=== PATIENT | female | born 1990 | race Caucasian/White ===

== ENCOUNTER 2020-02-24 18:11 | Emergency (ER) | payer OTHER, SELFPAY | END 2020-02-24 19:13 | disposition left against medical advice (07) | LOC: HO.ED 19:13 | PROVIDERS: Emergency Provider Emergency Medicine | DX: R05 Cough (principal) | CPT/HCPCS: 99281 ==

== ENCOUNTER 2020-02-29 11:10 | Outpatient (REF) | payer OTHER, SELFPAY | END 2020-02-29 11:11 | disposition home or self-care (01) | LOC: HO.LAB 11:10 | PROVIDERS: Visit Provider Internal Medicine | DX: Z20.828 Contact with and (suspected) exposure to other viral communicable diseases (principal) | CPT/HCPCS: 87635 ==

== ENCOUNTER 2020-09-05 15:39 | Outpatient (REF) | payer OTHER, SELFPAY | END 2020-09-05 15:40 | disposition home or self-care (01) | LOC: HO.LAB 15:39 | PROVIDERS: Visit Provider Internal Medicine | DX: Z20.822 Contact with and (suspected) exposure to COVID-19 (principal) | CPT/HCPCS: C9803; U0003; U0005 ==

== ENCOUNTER 2021-01-02 05:17 | Emergency (ER) | payer OTHER, SELFPAY ==
--- NOTE | ~2021-01-02 | XR_ITS ---
EXAMINATION: XR SHOULDER, RIGHT CLINICAL INFORMATION: Pain, no trauma COMPARISON: None TECHNIQUE: Three views of the right shoulder. FINDINGS: Glenohumeral alignment is anatomic. No acute fracture is seen. The acromioclavicular joint is intact. XR/XR shoulder RT min 2V IMPRESSION: No acute findings.
[2021-01-02 05:23] VITALS: BP 113/69; PULSE 91; RESP 16; TEMP 37; O2SAT 98; BMI 45.1
--- NOTE | 2021-01-02 05:50 | ED_ITS ---
HPI - Extremity Problem General Chief complaint: Extremity Injury, Upper Stated complaint: R SHOULDER PAIN S/P LIFTING HEAVY BOX AT WORK T-1 Time Seen by Provider: 01/02/21 05:34 Source: patient Mode of arrival: EMS Limitations: no limitations History of Present Illness HPI Narrative: Patient comes to emergency room complaining of suprascapular pain in the right side. Patient denies any injury. Patient states that whenever she moves her right arm up and down it hurts. Patient states her shoulder does not hurt. It is mostly pain above the scapula. Patient tried ibuprofen and Tylenol with no relief. Related Data Previous Rx's Medication Instructions Recorded cyclobenzaprine 10 mg tablet 10 mg PO TID PRN #14 tab 01/02/21 Allergies Allergy/AdvReac Type Severity Reaction Status Date / Time codeine [CODEINE] Allergy Intermediate HIVES Unverified 01/27/20 16:14 Penicillins [PCN] Allergy Intermediate HIVES Unverified 01/27/20 16:14 tramadol [TRAMADOL] Allergy Intermediate HIVES Unverified 01/27/20 16:14 latex [LATEX] Allergy Mild RASH Unverified 01/27/20 16:14 adhesive tape Allergy Unknown RASH Unverified 01/27/20 16:14 lidocaine [LIDOCAINE] Allergy Unknown RASH Unverified 01/27/20 16:14 loratadine [From CLARITIN] Allergy Unknown LIPS GO Unverified 01/27/20 16:14 NUMB morphine [MORPHINE] AdvReac Unknown VOMITING Unverified 01/27/20 16:14 Review of Systems Review of Systems: Constitutional : No Weight loss, No Fever, No Chills, No Night Sweats, No Fatigue, No Malaise ENT/Mouth : No Hearing loss, No Ear Pain, No Nasal Congestion, No Sinus Pain, No Hoarseness, No sore throat, No Rhinorrhea, No Swallowing Difficulty Eyes: No Eye Pain, No Swelling, No Redness, No Foreign Body, No Discharge, No Vision Changes Cardiovascular : No Chest Pain, No SOB, No Dyspnea on Exertion, No Orthopnea, No Edema, No Palpitations Respiratory : No Cough, No Sputum, No Wheezing, No Smoke Exposure, No Dyspnea Gastrointestinal : No Nausea, No Vomiting, No Diarrhea, No Constipation, No abdominal Pain, No Hematochezia, No Melena Genitourinary : no irregular bleeding, No Dysuria, No Urinary Frequency, No Hematuria, No Urinary Incontinence, No Urgency, No Flank Pain, No Urinary Flow Changes, No Hesitancy Musculoskeletal : No joint pain, complaining of suprascapular pain with movement Skin : No Skin Lesions, No rash Neuro : No Weakness, No Numbness, No Paresthesias, No Loss of Consciousness, No Dizziness, No Headache Psych : No Anxiety/Panic, No Depression, No SI/HI/AH/VH, No Social Issues, Heme/Lymph: No Bruising, No Bleeding,No Lymphadenopathy Endocrine : No Polyuria, No Polydipsia, No Temperature Intolerance [facility] Past Medical History Medical History Asthma PTSD (post-traumatic stress disorder) T-cell lymphoma Social History Social History Advance Directives: No Advance Directives Information Provided: No Patient : No Physical Exam Vital Signs: Vital Signs: Last Vital Signs Temp 98.6 F 01/02/21 05:23 Pulse 91 01/02/21 05:23 Resp 16 01/02/21 05:23 BP 113/69 01/02/21 05:23 Pulse Ox 98 01/02/21 05:23 Body Mass Index 45.1 Const: Other: Appearance: Alert. Oriented X3. No acute distress. Eyes: Pupils equal, round and reactive to light. ENT: Pharynx normal. Neck: Normal inspection. Neck supple. No lymph nodes noted. No crepitus CVS: Normal heart rate and rhythm. Pulses normal. Normal S1 and S2 Respiratory: No respiratory distress. Breath sounds normal. No Wheezing. No rales Abdomen: Soft and nontender. No rigidity. No distention. good BS x4 Skin: Skin warm and dry. Normal skin color. Normal skin turgor. Extremities: No lower extremity edema. Patient is able to abduct and adduct the arm, patient is able to lift it all the way up and hold it. Patient has no pain moving her shoulder, all the pain is in the suprascapular area. Pain to palpation over the suprascapular area, no bony tenderness. Neuro: Oriented X 3. No motor deficit. No sensory deficit. Moving all extermities. No slurred speech. Course Course Course Narrative: I discussed with the patient that she has musculoskeletal pain. Patient has no shoulder deformity, erythema, no shoulder pain on palpation or with movement. Patient was given 1 dose of IM Toradol and a dose of cyclobenzaprine. Shoulder x-rays unremarkable MDM - Extremity (Nontraumatic) Imaging Data Shoulder x-ray: Radiologist's impression: FINDINGS: Glenohumeral alignment is anatomic. No acute fracture is seen. The acromioclavicular joint is intact.? XR/XR shoulder RT min 2V IMPRESSION: No acute findings. Discharge Plan Discharge Clinical Impression: Musculoskeletal pain Patient Disposition: Home, Self-Care Instructions: Musculoskeletal Pain (ED) Additional Instructions: Do not take ibuprofen for the next 24 hours, you may only use Tylenol as needed. Please follow-up with your primary care physician tomorrow. If you have any worsening or new symptoms, please return to the emergency room or call 911 Prescriptions: New cyclobenzaprine 10 mg tablet 10 mg PO TID PRN (Reason: muscle spasm) Qty: 14 RF: 0
[2021-01-02] MEDS: Ketorolac Tromethamine 15 MG/ML VIAL 30 MG IM (05:59)
[2021-01-02] MEDS: Cyclobenzaprine HCl 10 MG TABLET PO (06:03)
== END 2021-01-02 06:23 | disposition home or self-care (01) ==
PROVIDERS: Emergency Provider Emergency Medicine
DX: M79.18 Myalgia, other site (principal)
CPT/HCPCS: 73030; 96372; 99283; 99284; J1885

== ENCOUNTER 2021-03-13 20:20 | Emergency (ER) | payer OTHER, SELFPAY ==
--- NOTE | ~2021-03-13 | XR_ITS ---
EXAMINATION: XR hand wrist LT CLINICAL INFORMATION: Pain status post fall, injury COMPARISON: None. TECHNIQUE: 3 views of the left hand and wrist FINDINGS: No fracture. Normal alignment. Normal mineralization. No radiopaque foreign body. No soft tissue abnormality seen. XR/XR hand wrist LT IMPRESSION: No acute osseous abnormality.
--- NOTE | ~2021-03-13 | XR_ITS ---
EXAMINATION: XR ELBOW, LEFT CLINICAL INFORMATION: Pain after fall COMPARISON: None TECHNIQUE: AP, lateral, and oblique views of the left elbow. FINDINGS: No fracture or dislocation. No joint effusion. Normal mineralization and alignment. XR/XR elbow LT min 3V IMPRESSION: No acute osseous abnormality of the left elbow.
[2021-03-13 20:34] VITALS: BP 122/80; PULSE 106; RESP 16; TEMP 36.9; O2SAT 99; BMI 41.1
--- NOTE | 2021-03-13 22:10 | ED_ITS ---
HPI - Fall General Chief Complaint: Fall Stated Complaint: fall Source: patient Mode of arrival: ambulatory Limitations: no limitations History of Present Illness HPI Narrative: Patient presents to the ED for left elbow and left hand pain since falling last week. patient states while trying to break her fall she out stretched her left hand which caused pain in hand and elbow. patient denies hitting head, loss of consciousness or body hitting the ground. Patient states no headache, abdominal pain, chest pain, shortness of breath, rectal bleeding, vomiting blood, flank pain, bloody urine, nausea, vomiting, or neck pain since incident. MD complaint: fall Related Data Previous Rx's Medication Instructions Recorded cyclobenzaprine 10 mg tablet 10 mg PO TID PRN #14 tab 01/02/21 naproxen 500 mg tablet 500 mg PO BID PRN #20 tab 03/13/21 Allergies Allergy/AdvReac Type Severity Reaction Status Date / Time codeine [CODEINE] Allergy Intermediate HIVES Unverified 01/27/20 16:14 Penicillins [PCN] Allergy Intermediate HIVES Unverified 01/27/20 16:14 tramadol [TRAMADOL] Allergy Intermediate HIVES Unverified 01/27/20 16:14 latex [LATEX] Allergy Mild RASH Unverified 01/27/20 16:14 adhesive tape Allergy Unknown RASH Unverified 01/27/20 16:14 lidocaine [LIDOCAINE] Allergy Unknown RASH Unverified 01/27/20 16:14 loratadine [From CLARITIN] Allergy Unknown LIPS GO Unverified 01/27/20 16:14 NUMB morphine [MORPHINE] AdvReac Unknown VOMITING Unverified 01/27/20 16:14 Review of Systems Review of Systems: Yes all other systems are reviewed and are negative Constitutional: Constitutional: Reports as per HPI and Reports no additional constitutional complaints Eyes: Eyes: Reports as per HPI and Reports no additional eye complaints ENT: Reports system reviewed and no additional complaints, except as documented and Reports as per HPI Cardiovascular: Cardiovascular: Reports as per HPI and Reports no additional cardiovascular complaints Respiratory: Respiratory: Reports as per HPI and Reports no additional respiratory complaints Gastrointestinal: Gastrointestinal: Reports as per HPI and Reports no additional gastrointestinal complaints Genitourinary: Genitourinary: Reports no additional female genitourinary complaints and Reports as per HPI Musculoskeletal: Musculoskeletal: Reports no additional musculoskeletal complaints and Reports arthralgias (left hand/elbow) Integumentary/Breasts: Skin/Breast: Reports system reviewed and no additional complaints, except as docu and Reports as per HPI Neurologic: Reports system reviewed and no additional complaints, except as documented and Reports as per HPI Psychiatric: Psychiatric: Reports no additional psychiatric complaints and Reports as per HPI [facility] Past Medical History Medical History Asthma PTSD (post-traumatic stress disorder) T-cell lymphoma Social History Social History Advance Directives: No Advance Directives Information Provided: Yes Physical Exam Vital Signs: Vital Signs: Last Vital Signs Temp 98.5 F 03/13/21 20:34 Pulse 106 H 03/13/21 20:34 Resp 16 03/13/21 20:34 BP 122/80 03/13/21 20:34 Pulse Ox 99 03/13/21 20:34 Body Mass Index 41.1 Const: General: cooperative, healthy appearing, comfortable, no acute distress, well developed, alert, awake and Physically active Orientation/consciousness: patient oriented x3 HENMT: Head: Yes normal to inspection, Yes No palpable skull fracture present, Yes normocephalic, Yes atraumatic, No abrasion, No Acrocyanosis present, No Gardner's sign, No contusion, No cranial bruits, No hematoma, No laceration, No occipital foramen tenderness, No palpable skull fracture, No raccoon eyes, No scalp lesion, No scalp tenderness, No Temporal artery tenderness present and No periorbital ecchymosis Eyes: General: appearance normal, both eyes and all related structures Neck: Neck: Yes normal visual inspection, Yes full ROM, Yes no lymphadenopathy, Yes no meningeal signs, Yes trachea midline, Yes supple, No anterior neck swelling and No tender Chest: Chest palpation & inspection: normal inspection of the chest and normal palpation of entire chest wall Resp: Effort & Inspection: normal respiratory effort and able to speak in complete sentences Auscultation: clear to auscultation bilaterally Cardio: Jugular venous distension: no JVD Heart sounds: S1 normal heart sound present and S2 normal heart sound present GI: Inspection: Yes normal to inspection and No abdominal wall ecchymosis Palpation (GI): Soft to palpation, not firm, nontender, no guarding and not rigid : General: No CVA tenderness and Yes no CVA tenderness Back/Spine/Pelvis: Back: no CVA tenderness, No CVA tenderness and No back tenderness Skin: General skin exam: no rashes or lesions noted and elasticity normal Neuro: General: patient oriented x3, gait normal, no meningeal signs and CN's II-XI intact bilaterally Cranial nerves: Yes CN's II-XII intact bilaterally Extrem: General: Yes normal to inspection and Yes full ROM Shoulder/upper arm images: 1. Mild tenderness. Patient has complete range of motion of elbow. Negative for any erythema, ecchymosis, swelling, redness, st iffness, or decreased mobility. Brachial pulse intact. Motor/neuro/vascular exam intact. Hand/finger images: 1. Mild tenderness on palpation. Negative for erythema, swelling, crepitus, ecchymosis, deformity, hotness, coolness, red streaks or stiffness. Patient has complete range of motion of hand and all fingers. Capillary refills intact. Motor/neuro/vascular exam of extremity intact. Psych: Appearance: grossly normal, well kempt and not disheveled Course Course Course Narrative: Patient sent for x-ray. Reevaluation(s) Reevaluation #1: X-ray negative for any fractures. Not suspecting cellulitis, DVT, or compartment syndrome. Not suspecting septic joint pain. Patient given Charles wrap for comfort Time: 22:18 MDM - Fall MDM Narrative Medical decision making narrative: Elbow/wrist sprain. Discharge Plan Discharge Clinical Impression: Sprain of hand, Elbow sprain, Contusion Patient Disposition: Home, Self-Care Instructions: Sprain (ED), Elbow Sprain (ED) Additional Instructions: The x-ray came back negative for fractures. He can use Charles wrap for comfort. He will be discharged with pain medication. Recommend follow-up with primary care provider if pain does not improve to see if he needs MRI. Return to ED for worsening pain, swelling, redness, pus discharge, foul odor, bluish black discoloration, hotness, coldness, red streaks, tingling/numbness, chest pain, shortness of breath, fever, chills, or any other concerning symptoms. Prescriptions: New naproxen 500 mg tablet 500 mg PO BID PRN (Reason: pain) Qty: 20 RF: 0 No Action cyclobenzaprine 10 mg tablet 10 mg PO TID PRN (Reason: muscle spasm) Qty: 14 RF: 0 Stand Alone Forms: Work/School Release Interventions: ED Discharge Assessment Last Done: 03/13/21 22:51 Discharge Date/Time: 03/13/21 22:30 Print Language: Panamanian
== END 2021-03-13 22:30 | disposition home or self-care (01) ==
PROVIDERS: Emergency Provider Student in an Organized Health Care Education/Training Program
DX: S63.92XA Sprain of unspecified part of left wrist and hand, initial encounter (principal); S53.402A Unspecified sprain of left elbow, initial encounter; M79.602 Pain in left arm; W19.XXXA Unspecified fall, initial encounter; Y93.9 Activity, unspecified; Y92.9 Unspecified place or not applicable; Y99.9 Unspecified external cause status; Z79.899 Other long term (current) drug therapy
CPT/HCPCS: 73080; 73110; 73130; 99283

== ENCOUNTER 2021-04-18 12:01 | Outpatient (REF) | payer OTHER, SELFPAY ==
[2021-04-18 12:54] LABS: COVID-19 Test Negative (Negative)
== END 2021-04-18 12:02 | disposition home or self-care (01) ==
LOC: HO.LAB 12:01
PROVIDERS: Visit Provider Internal Medicine
DX: Z20.822 Contact with and (suspected) exposure to COVID-19 (principal)
CPT/HCPCS: 36415; 87635; C9803

== ENCOUNTER 2021-05-20 13:19 | Emergency (ER) | payer OTHER, SELFPAY ==
--- NOTE | ~2021-05-20 | XR_ITS ---
EXAMINATION: XR CHEST CLINICAL INFORMATION: Cough. COMPARISON: None TECHNIQUE: 2 views of the chest were obtained. FINDINGS: No significant abnormality is noted involving the heart, lungs, mediastinum, bony thorax or soft tissues. XR/XR chest 2V IMPRESSION: Unremarkable chest examination.
[2021-05-20 13:37] VITALS: BP 139/72; BP 150/80; PULSE 113; PULSE 117; RESP 20; TEMP 36.1; O2SAT 95; O2SAT 97; BMI 44.4
[2021-05-20] MEDS: Ondansetron ODT 4 MG TAB.RAPDIS TRANSLINGU ×2 (13:46→14:15)
[2021-05-20 14:01] LABS: COVID-19 Test Positive (Negative)
--- NOTE | 2021-05-20 14:15 | ED.URI ---
HPI - URI/Sore Throat General Chief Complaint: Upper Respiratory Symptoms Stated Complaint: headache/sob Time Seen by Provider: 05/20/21 13:57 Source: patient Mode of arrival: ambulatory Limitations: no limitations History of Present Illness HPI Narrative: 31-year-old female here with reports of 2 days of headache, cough, wheezing, nausea and vomiting, body aches and subjective fevers. Patient was exposed to her sister was COVID positive 5 days ago. The patient is not vaccinated for COVID. No shortness of breath, chest pain, leg swelling or pain Related Data Previous Rx's Medication Instructions Recorded cyclobenzaprine 10 mg tablet 10 mg PO TID PRN #14 tab 01/02/21 naproxen 500 mg tablet 500 mg PO BID PRN #20 tab 03/13/21 ibuprofen 600 mg tablet 600 mg PO Q8H PRN #20 tab 05/20/21 ondansetron 4 mg disintegrating 4 mg PO Q6H PRN #10 tab 05/20/21 tablet Allergies Allergy/AdvReac Type Severity Reaction Status Date / Time codeine [CODEINE] Allergy Intermediate HIVES Unverified 01/27/20 16:14 Penicillins [PCN] Allergy Intermediate HIVES Unverified 01/27/20 16:14 tramadol [TRAMADOL] Allergy Intermediate HIVES Unverified 01/27/20 16:14 latex [LATEX] Allergy Mild RASH Unverified 01/27/20 16:14 adhesive tape Allergy Unknown RASH Unverified 01/27/20 16:14 lidocaine [LIDOCAINE] Allergy Unknown RASH Unverified 01/27/20 16:14 loratadine [From CLARITIN] Allergy Unknown LIPS GO Unverified 01/27/20 16:14 NUMB morphine [MORPHINE] AdvReac Unknown VOMITING Unverified 01/27/20 16:14 Review of Systems Review of Systems: Yes all other systems are reviewed and are negative Constitutional: Constitutional: Reports no additional constitutional complaints, Reports body ache(s), Denies chills, Reports fever(s) (subjective ), Reports headache(s) and Denies weakness Eyes: Eyes: Reports no additional eye complaints and Denies change in vision ENT: Reports system reviewed and no additional complaints, except as documented, Denies dizziness, Reports headache(s), Denies nasal congestion, Denies nasal discharge and Denies neck pain Cardiovascular: Cardiovascular: Reports no additional cardiovascular complaints, Denies chest pain, Denies leg edema and Denies dyspnea Respiratory: Respiratory: Reports no additional respiratory complaints, Reports cough, Denies dyspnea and Reports wheezing Gastrointestinal: Gastrointestinal: Reports no additional gastrointestinal complaints, Denies abdominal pain, Denies diarrhea, Reports nausea and Reports vomiting Genitourinary: Genitourinary: Reports no additional female genitourinary complaints and Denies urinary incontinence Musculoskeletal: Musculoskeletal: Reports no additional musculoskeletal complaints, Denies back pain, Denies arthralgias, Denies joint swelling, Denies neck pain, Denies numbness and Denies tingling Integumentary/Breasts: Skin/Breast: Reports system reviewed and no additional complaints, except as docu and Denies rash Neurologic: Reports system reviewed and no additional complaints, except as documented, Denies Abnormal speech present, Denies dizziness, Reports headache(s), Denies numbness, Denies tingling and Denies weakness Allergic/Immunologic: Allergic/Immunologic: Reports wheezing PMFSH Past Medical History Attestation statement: The following information was validated with the patient. Source: old records reviewed and nursing notes reviewed Medical History Asthma PTSD (post-traumatic stress disorder) T-cell lymphoma Social History Social History Advance Directives: No Advance Directives Information Provided: Yes Physical Exam Vital Signs: Vital Signs: Last Vital Signs Temp 97.0 F 05/20/21 13:37 Pulse 99 05/20/21 15:03 Resp 19 05/20/21 15:03 BP 139/72 05/20/21 13:37 Pulse Ox 96 05/20/21 15:03 BMI result Body Mass Index 44.4 Const: General: cooperative, healthy appearing, comfortable and no acute distress Orientation/consciousness: patient oriented x3 Limitations: no limitations HENMT: Head: Yes normal to inspection Ears: hearing grossly normal bilaterally General nose exam: Normal external nose present Face and sinus: Yes normal facial exam Mouth: Normal oral and palatal mucosa present Throat: Yes posterior oropharynx normal Eyes: General: appearance normal, both eyes and all related structures Pupils: Equal, round and reactive pupils present Neck: Neck: Yes normal visual inspection Chest: Chest palpation & inspection: normal inspection of the chest Resp: Other: Mild expiratory wheezing Effort & Inspection: normal respiratory effort Cardio: Rate: regular rate Rhythm: regular rhythm Peripheral pulses: Peripheral pulses 2+ throughout GI: Inspection: Yes normal to inspection Palpation (GI): Soft to palpation and nontender Auscultation: normal bowel sounds Back/Spine/Pelvis: Thoracic/Lumbar Spine: thoracic and lumbar spine normal to inspection Skin: General skin exam: no rashes or lesions noted Neuro: General: patient oriented x3, no focal motor deficits and normal sensation to monofilament Cranial nerves: Yes Equal, round and reactive pupils present Cognition (Neuro): normal cognition Speech: No Abnormal speech present Gait exam (Neuro): Normal gait present Motor exam (neuro): 5/5 motor strength present throughout Extrem: General: Yes normal to inspection Course Course Course Narrative: 31-year-old female here with 2 days of cough, nausea, vomiting, subjective fevers, headache, body aches, wheezing. Not vaccinated for COVID. Vitals are stable. Patient did vomit in triage. No abdominal pain or diarrhea. Will give sublingual Zofran, albuterol MDI. 1445-patient tolerating p.o.. No additional vomiting episodes. Mild tachycardia which is likely secondary to mild dehydration. Patient can orally rehydrate home. Her rapid COVID test is positive. Her chest x-ray shows no acute finding. Will discharge home with albuterol MDI, Zofran p.r.n. and NSAID for pain. Reviewed worrisome signs and symptoms of when to return to the emergency department. Comfortable discharge home. MDM - URI/Sore Throat Medical Records Attestation: I reviewed the patient's medical records. Lab Data Attestation: I reviewed the patient's lab results. Labs: Lab Results 05/20/21 Range/Units 13:45 COVID-19 ([facility]) Positive A (Negative) COVID-19 Clin Com See Note Imaging Data Chest x-ray: Attestation: I personally reviewed and interpreted this imaging study as follows: Radiologist's impression: [address] [address] XRay Report Signed Patient: Bianca Sebastian MR#: [id number] : 1990 Acct:[id number] Age/Sex: 31 / F ADM Date: 05/20/21 Loc: HO.ED Attending Dr: Ordering Physician: Jay Ball MD Date of Service: 05/20/21 Procedure(s): XR chest 2V Accession Number(s): [id number] cc: Jay Ball MD~ EXAMINATION: XR CHEST CLINICAL INFORMATION: Cough. COMPARISON: None TECHNIQUE: 2 views of the chest were obtained. FINDINGS: No significant abnormality is noted involving the heart, lungs, mediastinum, bony thorax or soft tissues. XR/XR chest 2V IMPRESSION: Unremarkable chest examination. Discharge Plan Discharge Clinical Impression: COVID-19 Patient Disposition: Home, Self-Care Instructions: COVID-19 (Coronavirus Disease 2019) (ED) Additional Instructions: COVID test is positive Quarantine for an additional 8 days Motrin or Tylenol for pain or fever Increase fluids, rest Zofran for nausea and vomiting Use inhaler as needed Prescriptions: New ondansetron 4 mg tablet,disintegrating 4 mg PO Q6H PRN (Reason: nausea and vomiting) Qty: 10 RF: 0 ibuprofen 600 mg tablet 600 mg PO Q8H PRN (Reason: fever or pain) Qty: 20 RF: 0 No Action cyclobenzaprine 10 mg tablet 10 mg PO TID PRN (Reason: muscle spasm) Qty: 14 RF: 0 naproxen 500 mg tablet 500 mg PO BID PRN (Reason: pain) Qty: 20 RF: 0 Referrals: Physician,Unknown J [Primary Care Provider] - 2 days Stand Alone Forms: Work/School Release Interventions: ED Discharge Assessment Last Done: 05/20/21 15:03 Discharge Date/Time: 05/20/21 15:04
[2021-05-20] MEDS: Albuterol Sulfate 90 MCG 8 GM INHALER 2 PUFF INHALE (15:00)
[2021-05-20 15:03] VITALS: PULSE 99; RESP 19; O2SAT 96
== END 2021-05-20 15:04 | disposition home or self-care (01) ==
PROVIDERS: Emergency Provider Internal Medicine
DX: U07.1 COVID-19 (principal)
CPT/HCPCS: 71046; 87635; 99284

== ENCOUNTER 2021-08-27 21:58 | Emergency (ER) | payer OTHER, SELFPAY ==
[2021-08-27 22:45] VITALS: BP 125/74; PULSE 104; RESP 20; TEMP 36.9; O2SAT 99; BMI 45.5
[2021-08-27 23:08] LABS: MANUAL DIFF FLAG NO
[2021-08-27 23:10] LABS: Appearance Urine CLEAR; Basophils Percent Auto 0.3 % (0-2); Color Urine STRAW; Eosinophils Absolute Auto 0.1 X10*3/uL (0.0-0.4); Eosinophils Percent Auto 0.7 % (0-4); Glucose Urine UA NEG (NEG); Hematocrit 36.9 % (37.0-47.0); Hemoglobin 11.6 g/dl (12.0-16.0); Imm Gran Abs Auto 0.04 X10*3/uL (0.00-0.03); Imm Gran Pct Auto 0.3 % (0.0-0.4); Leukocyte Esterase Urine NEG (NEG); Lymphocytes Absolute Auto 2.7 X10*3/uL (1.2-4.9); Lymphocytes Percent Auto 20.9 % (20-40); Mean Corpuscular HGB Conc 31.4 g/dl (31.0-35.0); Mean Corpuscular Hemoglobin 25.6 pg (27.0-33.0); Mean Corpuscular Volume 81.3 fL (80.0-98.0); Mean Platelet Volume 11.2 fL (9.4-12.3); Monocytes Absolute Auto 0.6 X10*3/uL (0.1-1.2); Neutrophils Absolute Auto 9.2 x10*3/uL (2.0-8.3); Neutrophils Percent Auto 72.8 % (45-73); Nitrite Urine NEG (NEG); Platelet Count 337 X10*3/uL (160-400); Red Blood Count 4.54 X10*6/uL (4.20-5.50); Red Cell Distribution Width 14.8 % (11.0-16.0); UACC Culture Trigger NO; Urine Blood TRACE (NEG); Urine Ketones NEG (NEG); Urine Protein NEG (NEG-TRACE); White Blood Count 12.7 X10*3/uL (4.8-10.8)
[2021-08-27 23:12] LABS: UPreg QC Valid YES; Urine Pregnancy NEGATIVE (NEGATIVE)
[2021-08-27 23:24] LABS: Squamous Epithelial Cell Urine TRACE /LPF; WBC Urine 0-2 /HPF (0-4)
--- NOTE | 2021-08-27 23:24 | ED.FEMALEGU ---
HPI - Female Genitourinary General Chief complaint: Urogenital-Female Stated complaint: lower L back pain; kidney stones Time Seen by Provider: 08/27/21 23:12 Source: patient Mode of arrival: ambulatory Limitations: no limitations History of Present Illness HPI Narrative: 31-year-old female past medical history significant for T-cell lymphoma, asthma, depression presents to the emergency department with complaints of right lower back pain/flank pain and concerns for an STD. Patient tells me that she is having right flank pain that radiates to her right side this is been going on for about a week worsening. She tells me that the pain is a squeezing/uncomfortable sensation. She tells me that she has had kidney stones in the past and it does not feel like her typical kidney stone. She tells me that the last time she felt this way she had an STD. She is concerned for STDs at this time and would like prophylactic treatment. At this time she denies fevers, chills, chest pain, shortness breath, nausea, vomiting, abdominal pain, dysparunia, vaginal discharge/bleeding. Patient does have a history of gonorrhea and chlamydia both of which were treated. MD elicited complaint: back pain and flank pain Pertinent past history: STI/STD Onset (ago): week(s) (1) Severity: moderate Severity scale (1-10): 5 Quality of pain: aching Consistency: constant Vaginal discharge: none Vaginal bleeding: none Exacerbating factors: none Relieving factors: none Associated symptoms: denies other symptoms Treatment prior to arrival: none Sexual activity: Yes Patient : No Related Data Previous Rx's Medication Instructions Recorded cyclobenzaprine 10 mg tablet 10 mg PO TID PRN #14 tab 01/02/21 naproxen 500 mg tablet 500 mg PO BID PRN #20 tab 03/13/21 ibuprofen 600 mg tablet 600 mg PO Q8H PRN #20 tab 05/20/21 ondansetron 4 mg disintegrating 4 mg PO Q6H PRN #10 tab 05/20/21 tablet doxycycline hyclate 100 mg capsule 100 mg PO BID 7 Days #14 cap 08/27/21 metronidazole 500 mg tablet 500 mg PO BID 7 Days #14 tab 08/27/21 cyclobenzaprine 10 mg tablet 10 mg PO BEDTIME PRN #7 tab 08/28/21 naproxen 500 mg tablet 500 mg PO BID #14 tab 08/28/21 Allergies Allergy/AdvReac Type Severity Reaction Status Date / Time codeine [CODEINE] Allergy Intermediate HIVES Verified 08/27/21 22:45 Penicillins [PCN] Allergy Intermediate HIVES Verified 08/27/21 22:45 tramadol [TRAMADOL] Allergy Intermediate HIVES Verified 08/27/21 22:45 latex [LATEX] Allergy Mild RASH Verified 08/27/21 22:45 adhesive tape Allergy Unknown RASH Verified 08/27/21 22:45 lidocaine [LIDOCAINE] Allergy Unknown RASH Verified 08/27/21 22:45 loratadine [From CLARITIN] Allergy Unknown LIPS GO Verified 08/27/21 22:45 NUMB morphine [MORPHINE] AdvReac Unknown VOMITING Verified 08/27/21 22:45 Review of Systems Review of Systems: Constitutional : No Weight loss, No Fever, No Chills, No Fatigue, No Malaise ENT/Mouth : No sore throat, No Rhinorrhea Eyes: No Eye Pain, No Swelling, No Redness Cardiovascular : No Chest Pain, No SOB, No Dyspnea on Exertion, No Orthopnea, No Edema, No Palpitations Respiratory : No Cough, No Sputum, No Wheezing Gastrointestinal : No Nausea, No Vomiting, No Diarrhea, No Constipation, No abdominal Pain, No Hematochezia, No Melena Genitourinary : No Dysuria, No Urinary Frequency, No Hematuria, Musculoskeletal : + joint pain, No Myalgias, No Joint Swelling Skin : No Skin Lesions, No rash Neuro : No Weakness, No Numbness, No Dizziness, No Headache Psych : No Anxiety/Panic, No Depression All other systems reviewed and are negative [facility] Past Medical History Attestation statement: The following information was validated with the patient. Source: old records reviewed and nursing notes reviewed Medical History Asthma PTSD (post-traumatic stress disorder) T-cell lymphoma Social History Social History Advance Directives: No Patient : No Physical Exam Vital Signs: Vital Signs: Last Vital Signs Temp 98.4 F 08/27/21 22:45 Pulse 104 H 08/27/21 22:45 Resp 20 08/27/21 22:45 BP 125/74 08/27/21 22:45 Pulse Ox 99 08/27/21 22:45 BMI result Body Mass Index 45.5 VSS Appearance: Alert.? Oriented X3.? No acute distress.? Head: Normocephalic, atraumatic, no step-offs or deformities Eyes: Pupils equal, round and reactive to light.? ENT: Pharynx normal.? Neck: Normal inspection.? Neck supple.? CVS: Normal heart rate and rhythm.? Pulses normal.? Respiratory: No respiratory distress.? Breath sounds normal.? Abdomen: Soft and nontender.? Skin: Skin warm and dry.? Normal skin color.? Normal skin turgor.? Extremities: No lower extremity edema.? No calf ttp. 5/5 strength to bilateral upper and lower extremities Back: No midline tenderness, no C-spine tenderness, full range of motion, + CVA tenderness on right Neuro: Oriented X 3.? No motor deficit.? No sensory deficit. CN 2-12 intact Course Reevaluation(s) Reevaluation #1: Patient agrees to prophylactic treatment for gonorrhea, chlamydia and trichomonas. 500mg IM ceftriaxone has been given here and scripts for doxycycline 100 mg po BID X 7 days and metronidazole 500 mg po BID X 7 days have been given to the patient. Educated on safe sex practices, full pannel STD testing and speaking to? partners on possible STD.? CBC with a slightly elevated white blood cell count. No acute electrolyte abnormalities requiring intervention. Urine clean. Patient does not want to wait for the CT of the abdomen and pelvis. I advised her that because of CVA tenderness on exam I am unable to rule out pyelonephritis. Time: 00:58 MDM - Female Genitourinary [facility] Narrative Medical decision making narrative: 2324 31 yo f presents w/ atraumatic right lower back pain and concerns for STD. Physical exam significant for CVA tenderness on the right. Stable vitals. Regular rate and rhythm. Lungs clear abdomen soft nontender nondistended. At this time will rule out UTI, pyelonephritis, kidney stones. Plan at this time is to prophylactically treat. Patient will get a CT of the abdomen and pelvis to rule out kidney stone/pyelonephritis. Medical Records Attestation: I reviewed the patient's medical records. Lab Data Attestation: I reviewed the patient's lab results. Result diagrams: 08/27/21 23:00 08/27/21 23:00 Labs: Lab Results 08/27/21 08/27/21 08/27/21 Range/Units 23:00 23:00 23:00 WBC 12.7 H (4.8-10.8) X10*3/uL RBC 4.54 (4.20-5.50) X10*6/uL Hgb 11.6 L (12.0-16.0) g/dl Hct 36.9 L (37.0-47.0) % MCV 81.3 (80.0-98.0) fL MCH 25.6 L (27.0-33.0) pg MCHC 31.4 (31.0-35.0) g/dl RDW 14.8 (11.0-16.0) % Plt Count 337 (160-400) X10*3/uL MPV 11.2 (9.4-12.3) fL Immature Gran % (Auto) 0.3 (0.0-0.4) % Neut % (Auto) 72.8 (45-73) % Lymph % (Auto) 20.9 (20-40) % Harrison % (Auto) 5.0 (2-11) % Eos % (Auto) 0.7 (0-4) % Baso % (Auto) 0.3 (0-2) % Lymph # (Auto) 2.7 (1.2-4.9) X10*3/uL Harrison # (Auto) 0.6 (0.1-1.2) X10*3/uL Eos # (Auto) 0.1 (0.0-0.4) X10*3/uL Baso # (Auto) 0.0 (0.0-0.2) X10*3/uL Abs Immat Gran (auto) 0.04 H (0.00-0.03) X10*3/uL Absolute Neuts (auto) 9.2 H (2.0-8.3) x10*3/uL Absolute Nucleated RBC 0.000 (0.0-0.012) X10*3/uL Nucleated RBC % (auto) 0.0 (0.0-0.2) /100WBC Sodium 139 (135-145) mmol/L Potassium 3.7 (3.3-5.1) mmol/L Chloride 106 (96-108) mmol/L Carbon Dioxide 23 (22-29) mmol/L Anion Gap 14 (12-20) BUN 8 L (9-16) mg/dL Creatinine 0.71 (0.5-1.4) mg/dL Estim Creat Clear Calc 149.3 Estimated GFR > 60 Random Glucose 117 H (60-115) mg/dL Calcium 9.1 (8.4-10.2) mg/dL Total Bilirubin 0.2 (0.0-1.0) mg/dL AST 18 (5-31) U/L ALT 17 (0-31) U/L Alkaline Phosphatase 84 (39-117) U/L Total Protein 7.2 (6.5-8.0) g/dL Albumin 3.9 (3.5-5.0) g/dL Lipase 28 (8-78) U/L Urine Color STRAW Urine Appearance CLEAR Urine pH 6.0 (5.0-8.0) Ur Specific [place] 1.020 (1.005-1.025) Urine Protein NEG (NEG-TRACE) MG/DL Urine Glucose (UA) NEG (NEG) MG/DL Urine Ketones NEG (NEG) MG/DL Urine Blood TRACE (NEG) Urine Nitrite NEG (NEG) Ur Leukocyte Esterase NEG (NEG) Urine RBC 1-4 (0) /HPF Urine WBC 0-2 (0-4) /HPF Ur Squamous Epith Cells TRACE /LPF Urine Bacteria NONE /LPF Urine Test (NEGATIVE) 08/27/21 Range/Units 23:00 WBC (4.8-10.8) X10*3/uL RBC (4.20-5.50) X10*6/uL Hgb (12.0-16.0) g/dl Hct (37.0-47.0) % MCV (80.0-98.0) fL MCH (27.0-33.0) pg MCHC (31.0-35.0) g/dl RDW (11.0-16.0) % Plt Count (160-400) X10*3/uL MPV (9.4-12.3) fL Immature Gran % (Auto) (0.0-0.4) % Neut % (Auto) (45-73) % Lymph % (Auto) (20-40) % Harrison % (Auto) (2-11) % Eos % (Auto) (0-4) % Baso % (Auto) (0-2) % Lymph # (Auto) (1.2-4.9) X10*3/uL Harrison # (Auto) (0.1-1.2) X10*3/uL Eos # (Auto) (0.0-0.4) X10*3/uL Baso # (Auto) (0.0-0.2) X10*3/uL Abs Immat Gran (auto) (0.00-0.03) X10*3/uL Absolute Neuts (auto) (2.0-8.3) x10*3/uL Absolute Nucleated RBC (0.0-0.012) X10*3/uL Nucleated RBC % (auto) (0.0-0.2) /100WBC Sodium (135-145) mmol/L Potassium (3.3-5.1) mmol/L Chloride (96-108) mmol/L Carbon Dioxide (22-29) mmol/L Anion Gap (12-20) BUN (9-16) mg/dL Creatinine (0.5-1.4) mg/dL Estim Creat Clear Calc Estimated GFR Random Glucose (60-115) mg/dL Calcium (8.4-10.2) mg/dL Total Bilirubin (0.0-1.0) mg/dL AST (5-31) U/L ALT (0-31) U/L Alkaline Phosphatase (39-117) U/L Total Protein (6.5-8.0) g/dL Albumin (3.5-5.0) g/dL Lipase (8-78) U/L Urine Color Urine Appearance Urine pH (5.0-8.0) Ur Specific [place] (1.005-1.025) Urine Protein (NEG-TRACE) MG/DL Urine Glucose (UA) (NEG) MG/DL Urine Ketones (NEG) MG/DL Urine Blood (NEG) Urine Nitrite (NEG) Ur Leukocyte Esterase (NEG) Urine RBC (0) /HPF Urine WBC (0-4) /HPF Ur Squamous Epith Cells /LPF Urine Bacteria /LPF Urine Test NEGATIVE (NEGATIVE) Critical Care Time Critical Care Time Critical Care Time: No Discharge Plan Discharge Clinical Impression: Lower back pain, Concern about STD in female without diagnosis, Left against medical advice Patient Disposition: Left Against Medical Advice Instructions: Acute Low Back Pain (ED) Additional Instructions: Take your medications as prescribed. If you were prescribed antibiotics today, it is important that you take your medication to their entirety, do not skip any doses, do not finish them early. Follow-up with your primary care provider this week. Return to the emergency department with new or worsening symptoms. Such as fevers, chills, chest pain, shortness of breath, nausea, vomiting, dizziness, headache, vision changes, lethargy In case of emergency call 911 You were treated here today with ceftriaxone, a medication that treats gonorrhea. I have sent to your pharmacy Metronidazole that covers trichomonas, and Doxycycline which covers for chlamydia. Please be reevaluated by a healthcare provider after completing your antibiotics. Do not stop them early, do not skip any doses. Until you are reevaluated by a health care provider please practice safe sex as disucussed. Please also have a conversation with your sexual partners.? I also advise you to obtain full panel STD testing to test for other STDs including HIV, Hepatitis B & C and syphilis with your PCP or a local clinic.? You decided to leave against medical advice meaning that your condition can go undiagnosed or progress. Potential risks include worsening of symptoms, decreased quality of life, , infection, sepsis, heart attack or stroke. Prescriptions: New doxycycline hyclate 100 mg capsule 100 mg PO BID 7 Days Qty: 14 0RF metronidazole 500 mg tablet 500 mg PO BID 7 Days Qty: 14 0RF cyclobenzaprine 10 mg tablet 10 mg PO BEDTIME PRN (Reason: muscle spasm) Qty: 7 0RF naproxen 500 mg tablet 500 mg PO BID Qty: 14 0RF No Action cyclobenzaprine 10 mg tablet 10 mg PO TID PRN (Reason: muscle spasm) Qty: 14 0RF ondansetron 4 mg tablet,disintegrating 4 mg PO Q6H PRN (Reason: nausea and vomiting) Qty: 10 0RF ibuprofen 600 mg tablet 600 mg PO Q8H PRN (Reason: fever or pain) Qty: 20 0RF naproxen 500 mg tablet 500 mg PO BID PRN (Reason: pain) Qty: 20 0RF Referrals: Physician,Unknown J [Primary Care Provider] - 3 days Stand Alone Forms: Against Medical Advice
[2021-08-27 23:29] LABS: Alanine Aminotransferase 17 U/L (0-31); Albumin Level 3.9 g/dL (3.5-5.0); Alkaline Phosphatase 84 U/L (39-117); Anion Gap 14 (12-20); Aspartate Amino Transferase 18 U/L (5-31); Bilirubin Total 0.2 mg/dL (0.0-1.0); Blood Urea Nitrogen 8 mg/dL (9-16); Calcium 9.1 mg/dL (8.4-10.2); Carbon Dioxide 23 mmol/L (22-29); Chloride 106 mmol/L (96-108); Creatinine Clr Calc Pharmacy 149.3; Estimated Glomerular Filt Rate > 60; Glucose Random 117 mg/dL (60-115); Lipase 28 U/L (8-78); Potassium 3.7 mmol/L (3.3-5.1); Sodium 139 mmol/L (135-145); Total Protein 7.2 g/dL (6.5-8.0)
[2021-08-28] MEDS: cefTRIAXone sodium 500 MG VIAL IM (00:25)
[2021-08-28 02:07] LABS: CT PCR NOT DETECTED (Not Detect.); NG PCR NOT DETECTED (Not Detect.)
== END 2021-08-28 01:12 | disposition left against medical advice (07) ==
PROVIDERS: Emergency Provider Internal Medicine
DX: M54.50 Low back pain, unspecified (principal); Z20.2 Contact with and (suspected) exposure to infections with a predominantly sexual mode of transmission; Z79.899 Other long term (current) drug therapy
CPT/HCPCS: 36415; 80053; 81001; 81025; 83690; 85025; 87491; 87591; 96372; 99284; J0696

== ENCOUNTER 2022-09-08 19:07 | Emergency (ER) | payer OTHER, SELFPAY ==
[2022-09-08 19:13] VITALS: BP 110/0; BP 120/77; PULSE 110; PULSE 121; RESP 18; TEMP 37.4; O2SAT 97; O2SAT 98; BMI 46.3
--- NOTE | 2022-09-08 19:21 | ED.GENADULT ---
HPI - General Adult General Chief complaint: Fever <TAMARA Pruett - Last Filed: 09/10/22 13:30> Stated complaint: N/V Sore throat X1day <TAMARA Pruett - Last Filed: 09/10/22 13:30> Time Seen by Provider: 09/08/22 22:44 <TAMARA Pruett - Last Filed: 09/10/22 13:30> Source: patient <Geno Guthrie MD - Last Filed: 09/09/22 00:52> Mode of arrival: ambulatory <Geno Guthrie MD - Last Filed: 09/09/22 00:52> History of Present Illness HPI narrative: 32-year-old female who presents with 3 days of worsening sore throat, headache, body aches, subjective fever with associated nausea vomiting after which she developed midsternal chest pain <Geno Guthrie MD - Last Filed: 09/09/22 00:52> Related Data Home medications: Previous Rx's Medication Instructions Recorded cyclobenzaprine 10 mg tablet 10 mg PO TID PRN muscle spasm #14 01/02/21 tabs naproxen 500 mg tablet 500 mg PO BID PRN pain #20 tabs 03/13/21 ibuprofen 600 mg tablet 600 mg PO Q8H PRN fever or pain 05/20/21 #20 tabs ondansetron 4 mg disintegrating 4 mg PO Q6H PRN nausea and 05/20/21 tablet vomiting #10 tabs doxycycline hyclate 100 mg capsule 100 mg PO BID 7 days #14 caps 08/27/21 metronidazole 500 mg tablet 500 mg PO BID 7 days #14 tabs 08/27/21 cyclobenzaprine 10 mg tablet 10 mg PO BEDTIME PRN muscle spasm 08/28/21 #7 tabs naproxen 500 mg tablet 500 mg PO BID #14 tabs 08/28/21 azithromycin 250 mg tablet 250 mg PO DAILY 4 days #4 tabs 09/09/22 ondansetron HCl 4 mg tablet 4 mg PO Q8H PRN nausea and 09/09/22 vomiting 4 days #7 tabs <TAMARA Pruett - Last Filed: 09/10/22 13:30> Allergies/adverse reactions: Allergies Allergy/AdvReac Type Severity Reaction Status Date / Time codeine [CODEINE] Allergy Intermediate HIVES Verified 08/27/21 22:45 Penicillins [PCN] Allergy Intermediate HIVES Verified 08/27/21 22:45 tramadol [TRAMADOL] Allergy Intermediate HIVES Verified 08/27/21 22:45 latex [LATEX] Allergy Mild RASH Verified 08/27/21 22:45 adhesive tape Allergy Unknown RASH Verified 08/27/21 22:45 lidocaine [LIDOCAINE] Allergy Unknown RASH Verified 08/27/21 22:45 loratadine [From CLARITIN] Allergy Unknown LIPS GO Verified 08/27/21 22:45 NUMB morphine [MORPHINE] AdvReac Unknown VOMITING Verified 08/27/21 22:45 <TAMARA Pruett - Last Filed: 09/10/22 13:30> Review of Systems Review of Systems: Pertinent positives and negatives as stated in HPI <Geno Guthrie MD - Last Filed: 09/09/22 00:52> PMFSH Past Medical History Source: nursing notes reviewed <Geno Guthrie MD - Last Filed: 09/09/22 00:52> Medical History: Medical History Asthma PTSD (post-traumatic stress disorder) T-cell lymphoma <TAMARA Pruett - Last Filed: 09/10/22 13:30> Social History Social History: Social History Smoked in Last 30 Days: Yes Use of substances other than those prescribed or required for medical reasons: Yes Substance Use Type: Marijuana Advance Directives: No Advance Directives Information Provided: No Patient : No <TAMARA Pruett - Last Filed: 09/10/22 13:30> Physical Exam ED Vital Signs: Vital Signs - 24 hr 09/08/22 19:13 09/08/22 22:28 09/08/22 23:23 Temperature 99.4 F 100.7 F H 99.1 F Pulse Rate 110 H 112 H 110 H Respiratory Rate 18 20 16 Blood Pressure 120/77 136/75 107/64 Pulse Oximetry 97 100 98 Oxygen Delivery Method Room Air Room Air Room Air BMI result Body Mass Index 46.3 <TAMARA Pruett - Last Filed: 09/10/22 13:30> Vital Signs - 24 hr 09/08/22 19:13 09/08/22 22:28 09/08/22 23:23 Temperature 99.4 F 100.7 F H 99.1 F Pulse Rate 110 H 112 H 110 H Respiratory Rate 18 20 16 Blood Pressure 120/77 136/75 107/64 Pulse Oximetry 97 100 98 Oxygen Delivery Method Room Air Room Air Room Air BMI result Body Mass Index 46.3 VITAL SIGNS: Reviewed. GENERAL: Well developed, well nourished, in no acute distress. HEAD: Normocephalic/atraumatic EYES: PERRLA, EOMI EARS: Ext canals without abnormality NOSE: Nares patent bilateral OROPHARYNX: no oral lesions noted, posterior pharynx clear but erythematous with noted tonsillar enlargement/erythema/exudates NECK: Supple, no adenopathy LUNGS: Normal breath sounds. No adventitious sounds or accessory muscle use. SpO2<98> CARDIOVASCULAR: Regular rate and rhythm without noted murmurs ABDOMEN: Soft, non-tender, non-distended with bowel sounds. MUSCULOSKELETAL: No tenderness, deformities, or effusions noted on gross inspection. EXTREMITIES: No cyanosis, clubbing or edema. SKIN: Inspection of the skin reveals no rashes NEUROLOGIC: Alert and oriented x 4. Strength and sensation to light touch were grossly intact x 4. <Geno Guthrie MD - Last Filed: 09/09/22 00:52> Course Course Course Narrative: MIRNA: Sherrill logan presents to the ED for fever, sore throat, nausea, chills, bodyaches, and vomitting that began today. Patient is well-appearing. Strep, SARS ordered <TAMARA Pruett - Last Filed: 09/10/22 13:30> Medications Administered Discontinued Medications Generic Name Dose Route Start Last Admin Trade Name Caron PRN Reason Stop Dose Admin Acetaminophen 650 mg 09/08/22 22:36 09/08/22 23:50 Acetaminophen 325 Mg Tablet PO 09/08/22 22:37 650 mg ONCE ONE Administration Acetaminophen 325 mg 09/08/22 22:44 09/08/22 23:50 Acetaminophen 325 Mg Tablet PO 09/08/22 22:45 325 mg ONCE ONE Administration Azithromycin 500 mg 09/08/22 22:46 09/08/22 23:50 Azithromycin 500 Mg Tablet PO 09/08/22 22:47 500 mg ONCE ONE Administration Ibuprofen 400 mg 09/08/22 22:44 09/08/22 23:50 Ibuprofen 400 Mg Tablet PO 09/08/22 22:45 400 mg ONCE ONE Administration Ondansetron HCl 4 mg 09/08/22 23:35 09/08/22 23:50 Ondansetron Odt 4 Mg Tab.Rapdis TRANSLINGU 09/08/22 23:36 4 mg ONCE ONE Administration <TAMARA Pruett - Last Filed: 09/10/22 13:30> Medications Administered Discontinued Medications Generic Name Dose Route Start Last Admin Trade Name Caron PRN Reason Stop Dose Admin Acetaminophen 650 mg 09/08/22 22:36 09/08/22 23:50 Acetaminophen 325 Mg Tablet PO 09/08/22 22:37 650 mg ONCE ONE Administration Acetaminophen 325 mg 09/08/22 22:44 09/08/22 23:50 Acetaminophen 325 Mg Tablet PO 09/08/22 22:45 325 mg ONCE ONE Administration Azithromycin 500 mg 09/08/22 22:46 09/08/22 23:50 Azithromycin 500 Mg Tablet PO 09/08/22 22:47 500 mg ONCE ONE Administration Ibuprofen 400 mg 09/08/22 22:44 09/08/22 23:50 Ibuprofen 400 Mg Tablet PO 09/08/22 22:45 400 mg ONCE ONE Administration Ondansetron HCl 4 mg 09/08/22 23:35 09/08/22 23:50 Ondansetron Odt 4 Mg Tab.Rapdis TRANSLINGU 09/08/22 23:36 4 mg ONCE ONE Administration <Geno Guthrie MD - Last Filed: 09/09/22 00:52> Medical Decision Making Medical Decision Making MDM Narrative: 32-year-old female provided with antiemetic as well as combination analgesics and initial antibiotics as patient is noted to be strep positive. <Geno Guthrie MD - Last Filed: 09/09/22 00:52> Differential Diagnosis Please see the discussion above <Geno Guthrie MD - Last Filed: 09/09/22 00:52> Lab Data Please see the discussion above <Geno Guthrie MD - Last Filed: 09/09/22 00:52> Labs: Lab Results 09/08/22 09/08/22 Range/Units 19:39 19:39 Influenza Type A (PCR) NEGATIVE (Negative) Influenza Type B (PCR) NEGATIVE (Negative) RSV RNA Qual (PCR) NEGATIVE (Negative) SARS-CoV-2 RNA (RT-PCR) NEGATIVE (Negative) S. pyogenes GrpA JEANNIE Positive A (Negative) <TAMARA Pruett - Last Filed: 09/10/22 13:30> Lab Results 09/08/22 09/08/22 Range/Units 19:39 19:39 Influenza Type A (PCR) NEGATIVE (Negative) Influenza Type B (PCR) NEGATIVE (Negative) RSV RNA Qual (PCR) NEGATIVE (Negative) SARS-CoV-2 RNA (RT-PCR) NEGATIVE (Negative) S. pyogenes GrpA JEANNIE Positive A (Negative) <Geno Guthrie MD - Last Filed: 09/09/22 00:52> Discharge Plan Discharge Clinical Impression: Strep pharyngitis <TAMARA Pruett - Last Filed: 09/10/22 13:30> Patient Disposition: Home, Self-Care <TAMARA Pruett - Last Filed: 09/10/22 13:30> Instructions: Strep Throat (ED) <TAMARA Pruett - Last Filed: 09/10/22 13:30> Additional Instructions: Recommend [id number] Tylenol/ibuprofen as needed for pain control. Complete the entire course of antibiotics as ordered. <TAMARA Pruett - Last Filed: 09/10/22 13:30> Prescriptions: New azithromycin 250 mg tablet 250 mg PO DAILY 4 Days Qty: 4 0RF Rx Instructions: start on day 2 of therapy ondansetron HCl 4 mg tablet 4 mg PO Q8H PRN (Reason: nausea and vomiting) 4 Days Qty: 7 0RF No Action cyclobenzaprine 10 mg tablet 10 mg PO TID PRN (Reason: muscle spasm) Qty: 14 0RF ondansetron 4 mg tablet,disintegrating 4 mg PO Q6H PRN (Reason: nausea and vomiting) Qty: 10 0RF ibuprofen 600 mg tablet 600 mg PO Q8H PRN (Reason: fever or pain) Qty: 20 0RF naproxen 500 mg tablet 500 mg PO BID PRN (Reason: pain) Qty: 20 0RF doxycycline hyclate 100 mg capsule 100 mg PO BID 7 Days Qty: 14 0RF metronidazole 500 mg tablet 500 mg PO BID 7 Days Qty: 14 0RF cyclobenzaprine 10 mg tablet 10 mg PO BEDTIME PRN (Reason: muscle spasm) Qty: 7 0RF naproxen 500 mg tablet 500 mg PO BID Qty: 14 0RF <TAMARA Pruett - Last Filed: 09/10/22 13:30> Interventions: ED Discharge Assessment Last Done: 09/09/22 01:05 <TAMARA Pruett - Last Filed: 09/10/22 13:30> Discharge Date/Time: 09/09/22 01:05 <TAMARA Pruett - Last Filed: 09/10/22 13:30>
[2022-09-08 20:02] LABS: IDNOW Serial# 08D9AD1C
[2022-09-08 20:03] LABS: Strep A Nucleic Acid Positive (Negative)
[2022-09-08 20:23] LABS: Influenza A PCR NEGATIVE (Negative); Influenza B PCR NEGATIVE (Negative); Resp Syncy Virus RNA Qual PCR NEGATIVE (Negative); SARS COV2 PCR INHOUSE NEGATIVE (Negative)
[2022-09-08 22:28] VITALS: BP 136/75; PULSE 112; RESP 20; TEMP 38.2; O2SAT 100
[2022-09-08 23:23] VITALS: BP 107/64; PULSE 110; RESP 16; TEMP 37.3; O2SAT 98
[2022-09-08] MEDS: Ibuprofen 400 MG TABLET PO (23:50)
[2022-09-08] MEDS: Acetaminophen 325 MG TABLET PO (23:50)
[2022-09-08] MEDS: Ondansetron ODT 4 MG TAB.RAPDIS TRANSLINGU (23:50)
[2022-09-08] MEDS: Acetaminophen 325 MG TABLET 650 MG PO (23:50)
[2022-09-08] MEDS: Azithromycin 500 MG TABLET PO (23:50)
[2022-09-09 01:00] VITALS: BP 100/56; PULSE 105; RESP 24; TEMP 37.6; O2SAT 96
--- NOTE | 2022-09-09 01:25 | PC.NURSE ---
pt ambulatory at discharge. pt partner a bedside. pt provided with discharge packet. pt verbalized understanding of discharge plan
== END 2022-09-09 01:05 | disposition home or self-care (01) ==
PROVIDERS: Physician Assistant; Emergency Provider Student in an Organized Health Care Education/Training Program
DX: J02.0 Streptococcal pharyngitis (principal); R50.9 Fever, unspecified; Z20.822 Contact with and (suspected) exposure to COVID-19; Z20.828 Contact with and (suspected) exposure to other viral communicable diseases
CPT/HCPCS: 0241U; 87651; 99283; 99284

== ENCOUNTER 2024-08-08 01:44 | Emergency (ER) | payer OTHER, SELFPAY ==
[2024-08-08 01:50] VITALS: BP 129/74; PULSE 90; RESP 16; TEMP 37.1; O2SAT 97
[2024-08-08 02:09] VITALS: BP 120/86; BP 129/74; PULSE 89; PULSE 90; RESP 16; TEMP 37.1; O2SAT 100; O2SAT 97; BMI 32.9
[2024-08-08 02:41] LABS: Basophils Absolute Auto 0.1 X10*3/uL (0.0-0.2); Basophils Percent Auto 0.4 % (0-2); Eosinophils Absolute Auto 0.1 X10*3/uL (0.0-0.4); Eosinophils Percent Auto 1.1 % (0-4); Hematocrit 39.7 % (37.0-47.0); Hemoglobin 13.3 g/dl (12.0-16.0); Imm Gran Abs Auto 0.02 X10*3/uL (0.00-0.03); Imm Gran Pct Auto 0.2 % (0.0-0.4); Lymphocytes Absolute Auto 2.8 X10*3/uL (1.2-4.9); Lymphocytes Percent Auto 23.5 % (20-40); MANUAL DIFF FLAG NO; Mean Corpuscular HGB Conc 33.5 g/dl (31.0-35.0); Mean Corpuscular Hemoglobin 28.1 pg (27.0-33.0); Mean Corpuscular Volume 83.8 fL (80.0-98.0); Mean Platelet Volume 11.1 fL (9.4-12.3); Monocytes Absolute Auto 0.6 X10*3/uL (0.1-1.2); Neutrophils Absolute Auto 8.4 x10*3/uL (2.0-8.3); Neutrophils Percent Auto 69.8 % (45-73); Platelet Count 298 X10*3/uL (160-400); Red Blood Count 4.74 X10*6/uL (4.20-5.50); Red Cell Distribution Width 13.9 % (11.0-16.0); White Blood Count 12.1 X10*3/uL (4.8-10.8)
[2024-08-08 02:44] LABS: UPreg QC Valid YES; Urine Pregnancy NEGATIVE (NEGATIVE)
--- NOTE | 2024-08-08 02:46 | ED.PSYCH ---
HPI - Psych General Chief Complaint: Psychiatric Symptoms Stated Complaint: SI Time Seen by Provider: 08/08/24 02:44 Source: patient Mode of arrival: EMS Limitations: no limitations History of Present Illness ED Provider: Dr. Porter Will HPI Narrative: 34-year-old female with a history of T-cell lymphoma, PTSD, asthma who presents emergency department for evaluation of suicidal ideation without a plan who states that she was very forgetful and forgot to take her Latuda. She states that she was not eating and she can not take her Latuda on an empty stomach therefore she did not take the medication . She told me that if she could eat some food down take her Latuda she will feel significantly better. Related Data Home Medications ?Medication ?Instructions ?Recorded ?Confirmed lurasidone 20 mg tablet 20 mg PO QPM 08/08/24 08/08/24 omeprazole 40 mg capsule,delayed 40 mg PO DAILY 08/08/24 08/08/24 release sumatriptan succinate 25 mg tablet 25 mg PO QD-BID PRN migraine 08/08/24 08/08/24 Allergies Allergy/AdvReac Type Severity Reaction Status Date / Time codeine [CODEINE] Allergy Intermediate HIVES Verified 08/08/24 02:17 Penicillins [PCN] Allergy Intermediate HIVES Verified 08/08/24 02:17 tramadol [TRAMADOL] Allergy Intermediate HIVES Verified 08/08/24 02:17 latex [LATEX] Allergy Mild RASH Verified 08/08/24 02:17 adhesive tape Allergy Unknown RASH Verified 08/08/24 02:17 lidocaine [LIDOCAINE] Allergy Unknown RASH Verified 08/08/24 02:17 loratadine [From CLARITIN] Allergy Unknown LIPS GO Verified 08/08/24 02:17 NUMB morphine [MORPHINE] AdvReac Unknown VOMITING Verified 08/08/24 02:17 Review of Systems Review of Systems: Yes all other systems are reviewed and are negative PMFSH Past Medical History Medical History Asthma PTSD (post-traumatic stress disorder) T-cell lymphoma Social History Social History Substance Use Type: Marijuana Advance Directives: No Do you have a plan to hurt others: No Plan Physical Exam Vital Signs: Vital Signs: Last Vital Signs Temp 98.7 F 08/08/24 02:09 Pulse 90 08/08/24 02:09 Resp 16 08/08/24 06:06 BP 129/74 08/08/24 02:09 Pulse Ox 97 08/08/24 02:09 O2 Del Method Room Air 08/08/24 02:09 BMI result Body Mass Index 32.9 Vital signs were normal Exam: General: Awake, alert in no distress Head: Normocephalic, atraumatic EENT: PERRL, Lids normal, sclera normal, conjunctiva normal, nose normal , ears normal, throat without erythema or exudates Neck: Supple, no adenopathy Lung: breath sounds symmetric, no wheezing, rales or rhonchi Chest: symmetric movement, nontender Heart: regular rate and rhythm, normal S1, S2 no murmurs or rubs Abdomen: soft, non-tender, nondistended, normal bowel sounds Back: no vertebral tenderness, no CVAT Extremities: no deformities, moves all extremities symmetrically Neuro: Awake, alert, oriented, normal speech, cranial nerves intact, moves all extremities symmetrically Psych: Pleasant, cooperative Medications Administered Discontinued Medications Generic Name Dose Route Start Last Admin Trade Name Freq PRN Reason Stop Dose Admin Lorazepam 2 mg 08/08/24 02:56 08/08/24 03:01 Lorazepam 1 Mg Tablet PO 08/08/24 02:57 2 mg ONCE STA Administration Lurasidone HCl 20 mg 08/08/24 02:56 08/08/24 03:01 Lurasidone Hcl 20 Mg Tablet PO 08/08/24 02:57 20 mg ONCE ONE Administration Medical Decision Making Medical Decision Making [facility] Narrative: 34-year-old female with a history of T-cell lymphoma, PTSD, asthma who presents emergency department for evaluation of suicidal ideation without a plan who states that she was very forgetful and forgot to take her Latuda. Patient told me that if she can take her Latuda tonight she thinks that she would be better and could go home. Patient was vital signs were normal. Physical examination was unremarkable Differential diagnosis: ?Includes but is not limited to suicidal ideation, homicidal ideation, noncompliance with the medications Course: 03:09 My independent interpretation patient's laboratory evaluation is as follows: WBC elevated 12,100. Glucose elevated 143. Urine test was negative. Ethanol level below detectable limits. Salicylates and acetaminophen below detectable limits. Urine tox screen positive for THC. The patient was not suicidal or homicidal. I suspect that she has anxiety and this is the reason why she came to the emergency department. The patient was ordered to get Latuda 20 mg orally and Ativan 2 mg orally. Patient will be kept in the emergency department until the morning when she can get a bus token to go back to [place]. The patient was comfortable with this plan. 07:40 the patient was discharged home. She was given printed and verbal instructions prior to discharge. Admission/Observation Consideration of admission/observation: Escalation of care including admission/observation considered (Yes) Lab Data MDM Lab Attestation statement: I reviewed the patient's lab results. 08/08/24 02:36 08/08/24 02:36 Labs: Lab Results 08/08/24 Range/Units 02:36 WBC 12.1 H (4.8-10.8) X10*3/uL RBC 4.74 (4.20-5.50) X10*6/uL Hgb 13.3 (12.0-16.0) g/dl Hct 39.7 (37.0-47.0) % MCV 83.8 (80.0-98.0) fL MCH 28.1 (27.0-33.0) pg MCHC 33.5 (31.0-35.0) g/dl RDW 13.9 (11.0-16.0) % Plt Count 298 (160-400) X10*3/uL MPV 11.1 (9.4-12.3) fL Immature Gran % (Auto) 0.2 (0.0-0.4) % Neut % (Auto) 69.8 (45-73) % Lymph % (Auto) 23.5 (20-40) % [place] % (Auto) 5.0 (2-11) % Eos % (Auto) 1.1 (0-4) % Baso % (Auto) 0.4 (0-2) % Lymph # (Auto) 2.8 (1.2-4.9) X10*3/uL [place] # (Auto) 0.6 (0.1-1.2) X10*3/uL Eos # (Auto) 0.1 (0.0-0.4) X10*3/uL Baso # (Auto) 0.1 (0.0-0.2) X10*3/uL Abs Immat Gran (auto) 0.02 (0.00-0.03) X10*3/uL Absolute Neuts (auto) 8.4 H (2.0-8.3) x10*3/uL Absolute Nucleated RBC 0.000 (0.0-0.012) X10*3/uL Nucleated RBC % (auto) 0.0 (0.0-0.2) /100WBC Sodium 140 (135-145) mmol/L Potassium 3.6 (3.3-5.1) mmol/L Chloride 107 (96-108) mmol/L Carbon Dioxide 25 (22-29) mmol/L Anion Gap 12 (12-20) BUN 9 (9-16) mg/dL Creatinine 0.69 (0.5-1.4) mg/dL Estim Creat Clear Calc 138.6 Estimated GFR > 60 Random Glucose 143 H (60-115) mg/dL Calcium 9.0 (8.4-10.2) mg/dL Total Bilirubin 0.2 (0.0-1.0) mg/dL AST 22 (5-31) U/L ALT 23 (0-31) U/L Alkaline Phosphatase 77 (39-117) U/L Total Protein 7.3 (6.5-8.0) g/dL Albumin 4.0 (3.5-5.0) g/dL Urine Test NEGATIVE (NEGATIVE) Salicylates < 5.0 L (15-30) mg/dL Urine Opiates Screen Not Detected (Not Detect) Ur Buprenorphine Scrn Not Detected (Not Detect) ng/mL Ur Oxycodone Screen Not Detected (Not Detect) ng/mL Urine Methadone Screen Not Detected (Not Detect) ng/mL Urine Fentanyl Screen Not Detected (Not Detect) Acetaminophen < 3 (<30) mcg/mL Ur Barbiturates Screen Not Detected (Not Detect) Ur Phencyclidine Scrn Not Detected (Not Detect) Ur Amphetamines Screen Not Detected (Not Detect) U Benzodiazepines Scrn Not Detected (Not Detect) Urine Cocaine Screen Not Detected (Not Detect) U Marijuana (THC) Screen POSITIVE H (Not Detect) Ethyl Alcohol < 10 mg/dL Chronic Conditions Patient?s care impacted by: Other (PTSD) Discharge Plan Discharge Clinical Impression: Anxiety Patient Disposition: Home, Self-Care Additional Instructions: Your blood work was unremarkable. You were given Latuda 20 mg orally and Ativan 2 mg orally. Continue taking medications as prescribed by your providers. You were seen in our Emergency Department today for treatment of a behavioral health issue. It is important after your visit that you follow up with either your behavioral health provider or a primary care doctor within 7 days.? If you have trouble finding a therapist you can reach out to [address] [phone] [facility] can be reached 7 days a week 24 hours a day.? Call [phone] to speak with someone.? Return for any worsening symptoms or concerns such as thoughts of self harm or harm to others. Please call 911 if you feel your mental health is worsening.? Prescriptions: No Action sumatriptan succinate 25 mg tablet 25 mg PO QD-BID PRN (Reason: migraine) omeprazole 40 mg capsule,delayed release(DR/EC) 40 mg PO DAILY lurasidone 20 mg tablet 20 mg PO QPM Interventions: Sac-Suicide Risk Severity Scale Last Done: 08/08/24 02:23 Print Language: Hong Konger
[2024-08-08 02:55] LABS: Amphetamine Screen Urine Not Detected (Not Detect); Barbiturates, Urine Not Detected (Not Detect); Benzodiazepines Screen Urine Not Detected (Not Detect); Buprenorphine Scr Not Detected (Not Detect); Cannabinoid Screen Urine POSITIVE (Not Detect); Cocaine Screen Urine Not Detected (Not Detect); Fentanyl, urine Not Detected (Not Detect); Methadone Screen, Urine Not Detected (Not Detect); Opiate Screen Urine Not Detected (Not Detect); Oxycodone Screen Urine Not Detected (Not Detect); Phencyclidine Screen Urine Not Detected (Not Detect)
[2024-08-08 02:56] LABS: Acetaminophen LAB < 3 mcg/mL (<30); Salicylate < 5.0 mg/dL (15-30)
[2024-08-08 02:57] LABS: Alanine Aminotransferase 23 U/L (0-31); Alkaline Phosphatase 77 U/L (39-117); Anion Gap 12 (12-20); Aspartate Amino Transferase 22 U/L (5-31); Bilirubin Total 0.2 mg/dL (0.0-1.0); Blood Urea Nitrogen 9 mg/dL (9-16); Carbon Dioxide 25 mmol/L (22-29); Chloride 107 mmol/L (96-108); Creatinine Clr Calc Pharmacy 138.6; Estimated Glomerular Filt Rate > 60; Ethanol < 10 mg/dL; Glucose Random 143 mg/dL (60-115); Potassium 3.6 mmol/L (3.3-5.1); Sodium 140 mmol/L (135-145); Total Protein 7.3 g/dL (6.5-8.0)
[2024-08-08] MEDS: LORazepam 1 MG TABLET 2 MG PO (03:01)
[2024-08-08] MEDS: Lurasidone HCl 20 MG TABLET PO (03:01)
--- NOTE | 2024-08-08 03:11 | PC.NURSE ---
client contracted for safety and tae stated she coud
--- NOTE | 2024-08-08 03:11 | PC.NURSE ---
geno home in am.
[2024-08-08 06:06] VITALS: RESP 16
[2024-08-08 08:57] VITALS: BP 134/71; PULSE 86; RESP 16; TEMP 36.3; O2SAT 98
[2024-08-08 09:11] VITALS: BP 134/71; PULSE 86; RESP 16; TEMP 36.3; O2SAT 98
== END 2024-08-08 09:17 | disposition home or self-care (01) ==
PROVIDERS: Emergency Provider Emergency Medicine Emergency Medical Services
DX: F41.9 Anxiety disorder, unspecified (principal); R45.851 Suicidal ideations; Z79.899 Other long term (current) drug therapy; Z85.79 Personal history of other malignant neoplasms of lymphoid, hematopoietic and related tissues
CPT/HCPCS: 36415; 80053; 80143; 80179; 80307; 81025; 85025; 99284

== ENCOUNTER 2025-02-02 15:51 | Emergency (ER) | payer OTHER, SELFPAY ==
[2025-02-02 16:18] VITALS: BP 117/70; BP 142/80; PULSE 76; PULSE 85; RESP 16; TEMP 36.8; O2SAT 96; O2SAT 99; BMI 39.6
[2025-02-02 16:18] LABS: MANUAL DIFF FLAG NO
[2025-02-02 16:22] VITALS: BP 117/70; PULSE 76; RESP 16; TEMP 36.8; O2SAT 99
[2025-02-02 16:25] LABS: Hematocrit 41.8 % (37.0-47.0); Hemoglobin 13.8 g/dl (12.0-16.0); Imm Gran Abs Auto 0.01 X10*3/uL (0.00-0.03); Imm Gran Pct Auto 0.1 % (0.0-0.4); Lymphocytes Absolute Auto 2.1 X10*3/uL (1.2-4.9); Mean Corpuscular HGB Conc 33.0 g/dl (31.0-35.0); Mean Corpuscular Hemoglobin 28.5 pg (27.0-33.0); Mean Corpuscular Volume 86.2 fL (80.0-98.0); NRBC Abs Auto 0.000 X10*3/uL (0.0-0.012); NRBC Pct Auto 0.0 /100WBC (0.0-0.2); Platelet Count 274 X10*3/uL (160-400); Red Blood Count 4.85 X10*6/uL (4.20-5.50); White Blood Count 7.5 X10*3/uL (4.8-10.8)
[2025-02-02 16:29] LABS: INTERNATIONAL NORM RATIO 1.0 (0.9-1.1); Prothrombin Time 11.8 SEC (10.9-12.4)
[2025-02-02 16:40] LABS: Alanine Aminotransferase 19 U/L (0-31); Albumin Level 4.2 g/dL (3.5-5.0); Alkaline Phosphatase 65 U/L (39-117); Anion Gap 10 (12-20); Aspartate Amino Transferase 29 U/L (5-31); Blood Urea Nitrogen 7 mg/dL (9-16); Calcium 9.0 mg/dL (8.4-10.2); Carbon Dioxide 30 mmol/L (22-29); Chloride 107 mmol/L (96-108); Creatinine Clr Calc Pharmacy 148.8; Estimated Glomerular Filt Rate > 60; Potassium 3.7 mmol/L (3.3-5.1); Sodium 143 mmol/L (135-145); Total Protein 7.0 g/dL (6.5-8.0)
--- NOTE | 2025-02-02 17:22 | ED.GENADULT ---
HPI - General Adult General Chief complaint: Headache Stated complaint: for headache Time Seen by Provider: 02/02/25 17:22 History of Present Illness ED Provider: Dr. Stephen HPI narrative: 34-year-old female history of migraine presented hospital today for evaluation of headache. She describes it as a frontal pounding headache with photophobia. Patient stated that this is similar to her prior migraine episodes in the past. She did try sumatriptan and naproxen without any alleviation. Denies any vision change denies any fever denies any neck pain. Related Data Home Medications ?Medication ?Instructions ?Recorded ?Confirmed lurasidone 20 mg tablet 20 mg PO QPM 08/08/24 08/08/24 omeprazole 40 mg capsule,delayed 40 mg PO DAILY 08/08/24 08/08/24 release sumatriptan succinate 25 mg tablet 25 mg PO QD-BID PRN migraine 08/08/24 08/08/24 Allergies Allergy/AdvReac Type Severity Reaction Status Date / Time codeine (CODEINE) Allergy Intermediate HIVES Verified 02/02/25 16:21 Penicillins (PCN) Allergy Intermediate HIVES Verified 02/02/25 16:21 tramadol (TRAMADOL) Allergy Intermediate HIVES Verified 02/02/25 16:21 latex (LATEX) Allergy Mild RASH Verified 02/02/25 16:21 adhesive tape Allergy Unknown RASH Verified 02/02/25 16:21 lidocaine (LIDOCAINE) Allergy Unknown RASH Verified 02/02/25 16:21 loratadine (From CLARITIN) Allergy Unknown LIPS GO Verified 02/02/25 16:21 NUMB morphine (MORPHINE) AdvReac Unknown VOMITING Verified 02/02/25 16:21 Review of Systems Review of Systems: Pertinent review of systems as mentioned in HPI. All other system otherwise negative. [facility] Past Medical History [facility] Narrative: Medical history as mentioned in HPI Medical History Asthma PTSD (post-traumatic stress disorder) T-cell lymphoma Social History Social History Smoked in Last 30 Days: No Use of substances other than those prescribed or required for medical reasons: Yes Substance Use Type: Marijuana Substance Use Frequency: Daily Advance Directives: No Advance Directives Information Provided: No Do you have a plan to hurt others: No Plan Patient : No Physical Exam ED Exam Exam: General: Pleasant, no distress, interacting appropriately Head: Normacephalic, atraumatic ENT: oral mucosa moist, neck supple, no tracheal deviation Cardiovascular: regular rate, regular rhythm, no murmurs, rubbing, gallops Respiratory: CTAB, no wheeze, rales, rhonchi Neurological: Awake and alert, no facial droop noted, no focal neurological deficit Skin: Warm and dry Psychiatric: Appropriate mood and thoughts Vital Signs: Vital Signs - 24 hr 02/02/25 16:18 02/02/25 16:22 02/02/25 18:16 Temperature 98.3 F 98.3 F 97.9 F Pulse Rate 76 76 78 Respiratory Rate 16 16 16 Blood Pressure 117/70 117/70 112/72 Pulse Oximetry 99 99 100 Oxygen Delivery Method Room Air Room Air Room Air BMI result Body Mass Index 39.6 Medications Administered Discontinued Medications Generic Name Dose Route Start Last Admin Trade Name Freq PRN Reason Stop Dose Admin Diphenhydramine HCl 25 mg 02/02/25 17:53 02/02/25 18:04 Diphenhydramine Hcl 50 Mg/Ml Vial IVPUSH 02/02/25 17:54 25 mg ONCE ONE Administration Magnesium Sulfate 2 gm in 50 mls @ 50 mls/hr 02/02/25 17:53 02/02/25 20:10 Magnesium Sulfate/H2o IV 02/02/25 18:52 Infused ONCE ONE Infusion Sodium Chloride 1,000 mls @ 999 mls/hr 02/02/25 18:00 02/02/25 20:10 Ns IV 02/02/25 19:00 Infused .Q1H1M JUAN ALBERTO Infusion Ketorolac Tromethamine 15 mg 02/02/25 17:53 02/02/25 18:04 Ketorolac Tromethamine 15 Mg/Ml Vial IVPUSH 02/02/25 17:54 15 mg ONCE ONE Administration Metoclopramide HCl 5 mg 02/02/25 17:53 02/02/25 18:04 Metoclopramide Hcl 10 Mg/2 Ml Vial IV 02/02/25 17:54 5 mg ONCE ONE Administration Medical Decision Making Medical Decision Making MDM Narrative: This is a 34-year-old female presented hospital today for evaluation of headaches and migraine. We will plan to give patient some IV Toradol, IV Reglan IV Benadryl IV fluid cm for her migraine. Patient does not have any focal neurological deficit. She is neurologically intact. I do not suspect intracranial hemorrhage or subarachnoid hemorrhage and the patient. We will plan to reassess after medication for the patient. On reassessment the patient stated her headache has improved. She is ready to go home at this time. We will plan to discharge patient. Differential Diagnosis Differential Diagnoses: The differential diagnosis associated with the presentation includes Migraine, subarachnoid hemorrhage, tension headache, cluster headache Lab Data MDM Lab Attestation statement: I reviewed the patient's lab results. 02/02/25 16:14 02/02/25 16:14 Labs: Lab Results 02/02/25 Range/Units 16:14 WBC 7.5 (4.8-10.8) X10*3/uL RBC 4.85 (4.20-5.50) X10*6/uL Hgb 13.8 (12.0-16.0) g/dl Hct 41.8 (37.0-47.0) % MCV 86.2 (80.0-98.0) fL MCH 28.5 (27.0-33.0) pg MCHC 33.0 (31.0-35.0) g/dl RDW 13.8 (11.0-16.0) % Plt Count 274 (160-400) X10*3/uL MPV 11.4 (9.4-12.3) fL Immature Gran % (Auto) 0.1 (0.0-0.4) % Neut % (Auto) 64.2 (45-73) % Lymph % (Auto) 27.8 (20-40) % [place] % (Auto) 6.1 (2-11) % Eos % (Auto) 1.3 (0-4) % Baso % (Auto) 0.5 (0-2) % Lymph # (Auto) 2.1 (1.2-4.9) X10*3/uL [place] # (Auto) 0.5 (0.1-1.2) X10*3/uL Eos # (Auto) 0.1 (0.0-0.4) X10*3/uL Baso # (Auto) 0.0 (0.0-0.2) X10*3/uL Abs Immat Gran (auto) 0.01 (0.00-0.03) X10*3/uL Absolute Neuts (auto) 4.8 (2.0-8.3) x10*3/uL Absolute Nucleated RBC 0.000 (0.0-0.012) X10*3/uL Nucleated RBC % (auto) 0.0 (0.0-0.2) /100WBC PT 11.8 (10.9-12.4) SEC INR 1.0 (0.9-1.1) Sodium 143 (135-145) mmol/L Potassium 3.7 (3.3-5.1) mmol/L Chloride 107 (96-108) mmol/L Carbon Dioxide 30 H (22-29) mmol/L Anion Gap 10 L (12-20) BUN 7 L (9-16) mg/dL Creatinine 0.64 (0.5-1.4) mg/dL Estim Creat Clear Calc 148.8 Estimated GFR > 60 Random Glucose 80 (60-115) mg/dL Calcium 9.0 (8.4-10.2) mg/dL Total Bilirubin 0.5 (0.0-1.0) mg/dL AST 29 (5-31) U/L ALT 19 (0-31) U/L Alkaline Phosphatase 65 (39-117) U/L Total Protein 7.0 (6.5-8.0) g/dL Albumin 4.2 (3.5-5.0) g/dL Discharge Plan Discharge Clinical Impression: Migraine Qualifiers: Migraine type: unspecified Status migrainosus presence: without status migrainosus Intractability: not intractable Qualified Code(s): G43.909 - Migraine, unspecified, not intractable, without status migrainosus Patient Disposition: Home, Self-Care Additional Instructions: You can ask your doctor on migraine preventative medications. Some are called Aimovig, Vjampti, Ajovemiliano, Emgality. There is another medicine called Nurtec as well. Prescriptions: No Action sumatriptan succinate 25 mg tablet 25 mg PO QD-BID PRN (Reason: migraine) omeprazole 40 mg capsule,delayed release(DR/EC) 40 mg PO DAILY lurasidone 20 mg tablet 20 mg PO QPM Print Language: [place]se
--- OUTSIDE RECORDS SUMMARY | 2025-02-02 18:08 | XMS_ITS | Clinical Summary ---
Author Organization [facility] Address [address] [place] [address] Care Team Providers Care Printing Agent Name Role Phone Unavailable Primary Care Provider Unavailabl e Allergies Active Allergy Reactions Criticality Noted Date Comments Codeine 05/21/2017 Doxycycline 04/08/2018 Penicillins 05/21/2017 Tape 05/21/2017 Tramadol 05/21/2017 Medications Medication Sig Dispensed Refills Start Date End Date Status amphetamine-dextroamph etamine (ADDERALL) 10 MG tablet Take 1 tablet (10 mg total) by mouth daily. 0 Active traZODone (DESYREL) 50 MG tablet Take 1 tablet (50 mg total) by mouth every night at bedtime. 0 Active hydrOXYzine (ATARAX/VISTARIL) 25 MG capsule Take by mouth. 0 Active perphenazine (TRILAFON) 4 MG tablet Take 1 tablet (4 mg total) by mouth 2 (two) times a day. 0 Active buPROPion (WELLBUTRIN XL) 150 MG 24 hr tablet Take 1 tablet (150 mg total) by mouth daily. 0 Active omeprazole (PriLOSEC) 20 MG capsule Take 1 capsule (20 mg total) by mouth daily. 0 Active SUMAtriptan (IMITREX) 25 MG tablet Take 1 tablet (25 mg total) by mouth every 2 (two) hours as needed for migraine. 0 Active ferrous sulfate 325 (65 FE) MG tablet Take 1 tablet (325 mg total) by mouth every morning with breakfast. 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 Family History Medical History Relation Name Comments Diabetes Father Cancer Paternal Grandfather Relation Name Status Comments Father Paternal Grandfather Social History Tobacco Use Types Packs/Day Years Used Date Smoking Tobacco: Unknown Smokeless Tobacco: Never Alcohol Use Standard Drinks/Week Comments No 0 (1 standard drink = 0.6 oz pur e alcohol) Sex and Gender Information Value Date Recorded Sex Assigned at Female 04/25/2023 10:41 AM EST Gender Identity Not on file Sexual Orientation Not on file Job Start Date Occupation Industry Not on file Not on file Not on file Last Filed Vital Signs Vital Sign Reading Time Taken Comments Blood Pressure 116/69 05/14/2023 11:12 AM EST Pulse 80 05/14/2023 11:12 AM EST Temperature 36.3 C (97.3 F) 05/14/2023 11:12 AM EST Respiratory Rate - - Oxygen Saturation 99% 05/14/2023 11:12 AM EST Inhaled Oxygen Concentration - - Weight 118.8 kg (262 lb) 05/14/2023 11:12 AM EST Height 162.6 cm (5' 4 ) 04/08/2018 9:38 AM EST Body Mass Index 44.97 04/08/2018 9:38 AM EST Plan of Treatment Health Maintenance Due Date Last Done Comments Hepatitis C Screening 1992 COVID-19 Vaccine (#1) 1992 DTap / Tdap / Td (2 - Tdap) 09/15/2003 09/14/2003 Depression Screening 2004 BMI Counseling 02/16/2010 Preventative Health Evaluation 02/16/2010 Cervical Cancer Screening (Pap Smear) 02/16/2013 Influenza Vaccine (#1) 2025 6, 05/10/2014, 07/26/2013, Additional history exists Hepatitis B Vaccines Completed 1992, 1992, 1992 Pneumococcal Vaccine Aged Out 09/24/2018, 01/08/20 18 No longer eligible based on patient's age to complete this topic RSV Ped < 20 months Aged Out No longe r eligible based on patient's age to complete this topic
--- OUTSIDE RECORDS SUMMARY | 2025-02-02 18:08 | XMS_ITS | Clinical Summary ---
Author Organization [facility] Address [address] [place] [address] Care Team Providers Care Senior Sales Operations Analyst Name Role Phone Chrystal Mitchell MD Primary Care Provider [phone] Medical History Medical History Date Comments Non-Hodgkin's lymphoma (CMS/ HCC V24, CMS/HCC V28) DX:Non-Hodgkin's lymphoma (H CC) Insomnia DX:Insomnia Family History Medical History Relation Name Comments Diabetes Father Cancer Paternal Grandfather Relation Name Status Comments Father Paternal Grandfather Social History Tobacco Use Types Packs/Day Years Used Date Smoking Tobacco: Unknown Smokeless Tobacco: Never Alcohol Use Standard Drinks/Week Comments No 0 (1 standard drink = 0.6 oz pur e alcohol) Comments Unknown Sex and Gender Information Value Date Recorded Sex Assigned at Not on file Legal Sex Female 4:43 PM EST Gender Identity Not on file Sexual Orientation Not on file Obstetrics History Last Filed Vital Signs Vital Sign Reading Time Taken Comments Blood Pressure 116/69 05/14/2023 11:12 AM EST Pulse 80 05/14/2023 11:12 AM EST Temperature - - Respiratory Rate - - Oxygen Saturation - - Inhaled Oxygen Concentration - - Weight 119 kg (262 lb) 05/14/2023 11:12 AM EST Height - - Body Mass Index - - Plan of Treatment Health Maintenance Due Date Last Done Comments COVID-19 Vaccine (#1) 02/16/1997 IPV Vaccines (2 of 3 - 4-dose series) 10/17/1997 09/19/1997 Cervical Cancer Screening: Pap Smear 02/16/2013 Pneumococcal Vaccine: Pediatrics (0 to 5 Years) and At-Risk Patients (6 to 49 Years) (3 of 3 - PCV) 09/25/2019 09/24/2018, 01/07/2018 Cholesterol Screening (Lipid Panel) 04/10/2022 HIV Screening 04/10/2022 Hepatitis C Screening 04/10/2022 Social Influencers of Health Screening 04/10/2022 Depression Screening 05/12/2024 Influenza Vaccine (#1) 2025 6, 05/10/2014, 07/26/2013, Additional history exists DTaP,Tdap,and Td Vaccines (10 - Td or Tdap) 09/24/2028 09/24/2018, 06/21/2016, 06/09/2012, Additional history exists Hepatitis B Vaccines Completed 1992, 1992, 1992 HIB Vaccines Completed 08/20/1993, 11/10, 1992, Additional history exists MMR Vaccines Completed 09/19/1997, 08/20/1993 Meningococcal ACWY Vaccine Aged Out 04/08/2007 N o longer eligible based on patient's age to complete this topic HPV Vaccines Completed 12/10/2013, 07/10, 09/15/2012, Additional history exists Hepatitis A Vaccines Aged Out No long er eligible based on patient's age to complete this topic Meningococcal B Vaccine Aged Out No l onger eligible based on patient's age to complete this topic RSV Immunization Patients Under 20 months Aged Out No longer eligible based on patient's age to complete this topic Varicella Vaccines Aged Out No longer eligible based on patient's age to complete this topic Care Teams Senior Sales Operations Analyst Relationship Specialty Start Date End Date Chrystal Mitchell MD [address] [place] [address] , [address] [facility] ARANZA Pride PCP - General 08/12/14
[2025-02-02] MEDS: Magnesium Sulfate/H2O 2 GM/50 ML PIGGYBACK IV (18:14)
[2025-02-02 18:16] VITALS: BP 112/72; PULSE 78; RESP 16; TEMP 36.6; O2SAT 100
[2025-02-02 20:42] VITALS: BP 110/76; PULSE 79; RESP 16; TEMP 36.6; O2SAT 100
[2025-02-02 20:43] VITALS: BP 110/76; PULSE 79; RESP 16; TEMP 36.6; O2SAT 100
== END 2025-02-02 20:44 | disposition home or self-care (01) ==
PROVIDERS: Emergency Provider Student in an Organized Health Care Education/Training Program
DX: G43.909 Migraine, unspecified, not intractable, without status migrainosus (principal)
CPT/HCPCS: 36415; 80053; 85025; 85610; 96361; 96374; 96375; 99284; 99285; J1200; J1885; J2765; J3475

== ENCOUNTER 2025-03-29 18:12 | Emergency (ER) | payer OTHER, SELFPAY ==
--- NOTE | 2025-03-29 | ECG_ITS ---
Test Reason : CP Blood Pressure : */* mmHG Vent. Rate : 89 BPM Atrial Rate : 89 BPM P-R Int : 170 ms QRS Dur : 92 ms QT Int : 374 ms P-R-T Axes : 58 24 61 degrees QTcB Int : 455 ms Sinus rhythm with occasional Premature ventricular complexes Otherwise normal ECG When compared with ECG of 07-Dec-2019 10:55, Premature ventricular complexes are now Present Referred By: Generic ED Physician Electronically Signed By: MOUNA RESTREPO
[2025-03-29 18:16] VITALS: BP 152/86; PULSE 117; O2SAT 100
[2025-03-29 18:19] VITALS: BP 153/88; PULSE 103; RESP 18; TEMP 36.7; O2SAT 100; BMI 37.6
[2025-03-29 19:07] VITALS: BP 128/77; PULSE 90; RESP 18; TEMP 36.9; O2SAT 100
--- NOTE | 2025-03-29 19:10 | MHC.EDTECH ---
pt assisted on bed oleary for urine output d/t feeling faint and dizzy, pt was able to clean herself independently, RN made aware
--- NOTE | 2025-03-29 19:11 | PC.NURSE ---
20 g IV in left AC
[2025-03-29 19:26] LABS: MANUAL DIFF FLAG NO
[2025-03-29 19:28] LABS: Hematocrit 42.5 % (37.0-47.0); Hemoglobin 14.4 g/dl (12.0-16.0); Imm Gran Abs Auto 0.03 X10*3/uL (0.00-0.03); Imm Gran Pct Auto 0.4 % (0.0-0.4); Lymphocytes Absolute Auto 2.1 X10*3/uL (1.2-4.9); Mean Corpuscular HGB Conc 33.9 g/dl (31.0-35.0); Mean Corpuscular Hemoglobin 28.9 pg (27.0-33.0); Mean Corpuscular Volume 85.3 fL (80.0-98.0); NRBC Abs Auto 0.000 X10*3/uL (0.0-0.012); NRBC Pct Auto 0.0 /100WBC (0.0-0.2); Platelet Count 301 X10*3/uL (160-400); Red Blood Count 4.98 X10*6/uL (4.20-5.50); White Blood Count 7.7 X10*3/uL (4.8-10.8)
[2025-03-29 19:44] LABS: Alanine Aminotransferase 26 U/L (0-31); Albumin Level 4.5 g/dL (3.5-5.0); Alkaline Phosphatase 59 U/L (39-117); Anion Gap 14 (12-20); Aspartate Amino Transferase 26 U/L (5-31); Blood Urea Nitrogen 6 mg/dL (9-16); Calcium 9.9 mg/dL (8.4-10.2); Carbon Dioxide 23 mmol/L (22-29); Chloride 110 mmol/L (96-108); Creatinine Clr Calc Pharmacy 134.7; Estimated Glomerular Filt Rate > 60; Magnesium 1.8 mg/dL (1.6-2.6); Potassium 3.5 mmol/L (3.3-5.1); Sodium 143 mmol/L (135-145); Total Protein 7.2 g/dL (6.5-8.0)
[2025-03-29 19:51] LABS: Troponin-I High Sensitivity < 2.7 ng/L (<3.5-17.0)
[2025-03-29 20:04] LABS: Resp Syncy Virus RNA Qual PCR NEGATIVE (Negative); SARS COV2 PCR INHOUSE NEGATIVE (Negative)
--- NOTE | 2025-03-29 20:23 | ED.GENADULT ---
HPI - General Adult General Chief complaint: General Medical Stated complaint: Racing Heart w/ CP faint dizzy pain breathing Time Seen by Provider: 03/29/25 20:22 Source: patient Mode of arrival: ambulatory Limitations: no limitations History of Present Illness ED Provider: ALBERTINA Blum Related Data Home Medications ?Medication ?Instructions ?Recorded ?Confirmed lurasidone 20 mg tablet 20 mg PO QPM 08/08/24 08/08/24 omeprazole 40 mg capsule,delayed 40 mg PO DAILY 08/08/24 08/08/24 release sumatriptan succinate 25 mg tablet 25 mg PO QD-BID PRN migraine 08/08/24 08/08/24 Allergies Allergy/AdvReac Type Severity Reaction Status Date / Time codeine (CODEINE) Allergy Intermediate HIVES Verified 03/29/25 18:21 Penicillins (PCN) Allergy Intermediate HIVES Verified 03/29/25 18:21 tramadol (TRAMADOL) Allergy Intermediate HIVES Verified 03/29/25 18:21 latex (LATEX) Allergy Mild RASH Verified 03/29/25 18:21 adhesive tape Allergy Unknown RASH Verified 03/29/25 18:21 lidocaine (LIDOCAINE) Allergy Unknown RASH Verified 03/29/25 18:21 loratadine (From CLARITIN) Allergy Unknown LIPS GO Verified 03/29/25 18:21 NUMB morphine (MORPHINE) AdvReac Unknown VOMITING Verified 03/29/25 18:21 PMFSH Past Medical History Medical History Asthma PTSD (post-traumatic stress disorder) T-cell lymphoma Social History Social History Smoked in Last 30 Days: No Use of substances other than those prescribed or required for medical reasons: Yes Substance Use Type: Marijuana Advance Directives: No Advance Directives Information Provided: No Do you have a plan to hurt others: No Plan Physical Exam ED Vital Signs: Vital Signs - 24 hr 03/29/25 18:19 03/29/25 19:07 Temperature 98.1 F 98.5 F Pulse Rate 103 H 90 Respiratory Rate 18 18 Blood Pressure 153/88 H 128/77 Pulse Oximetry 100 100 Oxygen Delivery Method Room Air Room Air BMI result Body Mass Index 37.6 Medical Decision Making Lab Data 03/29/25 19:18 03/29/25 19:18 Labs: Lab Results 03/29/25 Range/Units 19:18 WBC 7.7 (4.8-10.8) X10*3/uL RBC 4.98 (4.20-5.50) X10*6/uL Hgb 14.4 (12.0-16.0) g/dl Hct 42.5 (37.0-47.0) % MCV 85.3 (80.0-98.0) fL MCH 28.9 (27.0-33.0) pg MCHC 33.9 (31.0-35.0) g/dl RDW 13.3 (11.0-16.0) % Plt Count 301 (160-400) X10*3/uL MPV 11.6 (9.4-12.3) fL Immature Gran % (Auto) 0.4 (0.0-0.4) % Neut % (Auto) 63.4 (45-73) % Lymph % (Auto) 27.5 (20-40) % Bradley % (Auto) 6.9 (2-11) % Eos % (Auto) 1.2 (0-4) % Baso % (Auto) 0.6 (0-2) % Lymph # (Auto) 2.1 (1.2-4.9) X10*3/uL Bradley # (Auto) 0.5 (0.1-1.2) X10*3/uL Eos # (Auto) 0.1 (0.0-0.4) X10*3/uL Baso # (Auto) 0.1 (0.0-0.2) X10*3/uL Abs Immat Gran (auto) 0.03 (0.00-0.03) X10*3/uL Absolute Neuts (auto) 4.9 (2.0-8.3) x10*3/uL Absolute Nucleated RBC 0.000 (0.0-0.012) X10*3/uL Nucleated RBC % (auto) 0.0 (0.0-0.2) /100WBC Sodium 143 (135-145) mmol/L Potassium 3.5 (3.3-5.1) mmol/L Chloride 110 H (96-108) mmol/L Carbon Dioxide 23 (22-29) mmol/L Anion Gap 14 (12-20) BUN 6 L (9-16) mg/dL Creatinine 0.68 (0.5-1.4) mg/dL Estim Creat Clear Calc 134.7 Estimated GFR > 60 Random Glucose 69 (60-115) mg/dL Calcium 9.9 D (8.4-10.2) mg/dL Magnesium 1.8 (1.6-2.6) mg/dL Total Bilirubin 0.3 (0.0-1.0) mg/dL AST 26 (5-31) U/L ALT 26 (0-31) U/L Alkaline Phosphatase 59 (39-117) U/L Troponin I High Sens < 2.7 (<3.5-17.0) ng/L Total Protein 7.2 (6.5-8.0) g/dL Albumin 4.5 (3.5-5.0) g/dL Influenza Type A (PCR) NEGATIVE (Negative) Influenza Type B (PCR) NEGATIVE (Negative) RSV RNA Qual (PCR) NEGATIVE (Negative) SARS-CoV-2 RNA (RT-PCR) NEGATIVE (Negative) Discharge Plan Discharge Clinical Impression: Heart palpitations, Myalgia Chest pain Qualifiers: Chest pain type: other chest pain Qualified Code(s): R07.89 - Other chest pain Chronic otitis media with serous effusion Qualifiers: Laterality: bilateral Qualified Code(s): H65.23 - Chronic serous otitis media, bilateral Patient Disposition: Home, Self-Care Instructions: Premature Ventricular Contractions (ED) Additional Instructions: ED Discharge Summary Discharge Summary Patient: 35-year-old female Date of Service: 2025-03-30 Presenting Symptoms: Chest pain (pleuritic), palpitations, dizziness, viral-like symptoms. ED Course: Patient presented with acute chest pain, palpitations, and dizziness. Initial evaluation included ECG (sinus rhythm, occasional benign PVCs), chest X-ray (unremarkable), and laboratory studies (CBC, CMP, troponin all within normal limits). COVID-19 and influenza tests were negative. Physical exam notable for serous middle ear effusion, likely contributing to dizziness. No evidence of acute cardiac or pulmonary pathology was found. No hypoxemia or abnormal vital signs. Diagnosis: - Benign premature ventricular contractions (PVCs) - Middle ear effusion - Likely viral illness Disposition: Patient is low risk for acute coronary syndrome or other life-threatening cardiac/pulmonary conditions and is safe for discharge per [employer] guidelines Discharge Instructions: - Rest and maintain adequate hydration - Return to ED for worsening chest pain, shortness of breath, fever, syncope, or new symptoms - Outpatient cardiology follow-up recommended for PVCs - Continue supportive care for viral symptoms - COVID-19 and influenza tests were negative Follow-up: - Cardiology within 14?30 days for PVC evaluation per ACC recommendations - PCP as needed for ongoing symptoms Summary: Patient discharged in stable condition with no evidence of acute cardiac or pulmonary disease. Benign PVCs and viral symptoms managed conservatively. COVID-19 and influenza ruled out. Prescriptions: No Action sumatriptan succinate 25 mg tablet 25 mg PO QD-BID PRN (Reason: migraine) omeprazole 40 mg capsule,delayed release(DR/EC) 40 mg PO DAILY lurasidone 20 mg tablet 20 mg PO QPM Referrals: [facility] [Provider Group] Stand Alone Forms: Work/School Release Print Language: Lithuanian
[2025-03-29 21:04] VITALS: BP 128/77; PULSE 90; RESP 18; TEMP 36.9; O2SAT 100
--- OUTSIDE RECORDS SUMMARY | 2025-03-30 13:46 | XMS_ITS | Clinical Summary ---
Author Organization [facility] ity Address [address] [place] [address] Care Team Providers Care Gas Usage Meter Clerk Name Role Phone Chrystal Mitchell MD Primary Care Provider [phone] Medical History Medical History Date Comments Non-Hodgkin's [...] 09/24/2028 09/24/2018, 06/21/2016, 06/09/2012, Additional history exists RSV Immunization Adult Patients (1 - 1-dose 75+ series) 02/16/2067 Hepatitis B Vaccines Completed 1992, 1992, 1992 [...] age to complete this topic Care Teams Gas Usage Meter Clerk Relationship Specialty Start Date End Date Chrystal Mitchell MD [address] [place] [address] , [address] [facility] D[facility]A: [facility] ARANZA Pride PCP - General 08/12/14
--- OUTSIDE RECORDS SUMMARY | 2025-03-30 13:46 | XMS_ITS | Clinical Summary ---
Author Organization [facility] Address [address] [place] [address] Care Team Providers Care Glue Maker Name Role Phone Unavailable Primary Care Provider [...]
== END 2025-03-29 21:04 | disposition home or self-care (01) ==
PROVIDERS: Physician Assistant Medical; Emergency Provider Emergency Medicine
DX: R00.2 Palpitations (principal); M79.10 Myalgia, unspecified site; R07.89 Other chest pain; H65.23 Chronic serous otitis media, bilateral; Z88.0 Allergy status to penicillin; Z88.5 Allergy status to narcotic agent; Z88.8 Allergy status to other drugs, medicaments and biological substances; Z91.040 Latex allergy status
CPT/HCPCS: 80053; 83735; 84484; 85025; 87637; 93005; 99283; 99284

== ENCOUNTER → 2025-03-29 18:23 | Outpatient (BNV) | payer OTHER, SELFPAY | PROVIDERS: Emergency Provider Emergency Medicine; Visit Provider Internal Medicine | DX: I49.3 Ventricular premature depolarization (principal) | CPT/HCPCS: 93010 ==

== ENCOUNTER 2025-03-31 16:04 | Emergency (ER) | payer OTHER, SELFPAY ==
--- NOTE | ~2025-03-31 | XR_ITS ---
CLINICAL HISTORY: Chest pain Single view of the chest. Findings: Heart size is normal. There is no consolidation. No pleural effusions are seen. There are surgical clips in the left lower neck. Impression: No acute abnormalities. This document has been electronically signed by: Loyd Bettencourt MD on 03/31/2025 17:49:19
--- NOTE | 2025-03-31 16:06 | ECG_ITS ---
Test Reason : cp Blood Pressure : */* mmHG Vent. Rate : 82 BPM Atrial Rate : 82 BPM P-R Int : 168 ms QRS Dur : 92 ms QT Int : 372 ms P-R-T Axes : 68 12 62 degrees QTcB Int : 434 ms Normal sinus rhythm Normal ECG When compared with ECG of 29-Mar-2025 18:23, Premature ventricular complexes are no longer Present Referred By: Generic ED Physician Electronically Signed By: MOUNA RESTREPO
[2025-03-31 16:09] VITALS: BP 122/87; PULSE 93; O2SAT 98
[2025-03-31 16:22] VITALS: BP 112/66; PULSE 77; RESP 22; TEMP 36.4; O2SAT 100; BMI 37.6
--- NOTE | 2025-03-31 16:38 | ED.CHESTPAIN ---
HPI - Chest Pain General Chief Complaint: Chest Pain Stated Complaint: CP 01/19 Time Seen by Provider: 03/31/25 18:28 Source: patient Mode of arrival: ambulatory Limitations: no limitations History of Present Illness ED Provider: Dr. Vandana Salazar HPI narrative: 34-year-old female with a history of bipolar depression and migraine headaches presenting with chest pain ongoing for the last 4 days or so. We will seen here last week for similar symptoms. Reports that she has not improved with the antacid medications. Describes anterior chest wall tenderness particularly with movement and exertion. Describes associated shortness of breath and nausea but no vomiting. No family history of early onset heart disease or sudden cardiac . No associated leg swelling. Has been feeling well prior to her last ED visit. No reported fever. Denies cough or cold-type symptoms. Related Data Home Medications ?Medication ?Instructions ?Recorded ?Confirmed lurasidone 20 mg tablet 20 mg PO QPM 08/08/24 08/08/24 omeprazole 40 mg capsule,delayed 40 mg PO DAILY 08/08/24 08/08/24 release sumatriptan succinate 25 mg tablet 25 mg PO QD-BID PRN migraine 08/08/24 08/08/24 Previous Rx's ?Medication ?Instructions ?Recorded prednisone 50 mg tablet 50 mg PO DAILY 5 days #5 tabs 03/31/25 Allergies Allergy/AdvReac Type Severity Reaction Status Date / Time codeine (CODEINE) Allergy Intermediate HIVES Verified 03/31/25 16:24 Penicillins (PCN) Allergy Intermediate HIVES Verified 03/31/25 16:24 tramadol (TRAMADOL) Allergy Intermediate HIVES Verified 03/31/25 16:24 latex (LATEX) Allergy Mild RASH Verified 03/31/25 16:24 adhesive tape Allergy Unknown RASH Verified 03/31/25 16:24 lidocaine (LIDOCAINE) Allergy Unknown RASH Verified 03/31/25 16:24 loratadine (From CLARITIN) Allergy Unknown LIPS GO Verified 03/31/25 16:24 NUMB morphine (MORPHINE) AdvReac Unknown VOMITING Verified 03/31/25 16:24 Review of Systems Review of Systems: as per HPI, full review of systems performed and negative but for the above mentioned pertinent positives and negatives. PMFSH Past Medical History Medical History T-cell lymphoma PTSD (post-traumatic stress disorder) Asthma Social History Social History Substance Use Type: Marijuana Physical Exam Exam: Exam: GENERAL: Ill-Appearing, appears uncomfortable. SKIN: Normal skin color for ethnicity, warm, dry, no rashes noted. HEENT:? Normocephalic, atraumatic, no stridor, dry mucous membranes, dentition intact, EOMI. NECK: Soft, supple, full ROM, midline structures nontender, no step-offs, no deformities, no lymphadenopathy. CHEST: Heart regular rhythm, no murmurs, symmetric chest rise and fall, left anterior chest wall tenderness to palpation, no crepitus. PULMONARY: Clear to auscultation bilaterally, diminished at the bases, no labored breathing, no wheezes/rhales/rhonchi. ABDOMINAL: Soft, nondistended, nontender, positive bowel sounds in all quadrants. : Deferred. MUSCULOSKELETAL: Normal tone, full range of motion, no deformities, no peripheral edema. NEURO: Alert and oriented x3, CN II through XII intact, equal strength and sensation bilateral upper and lower extremities, no focal neurologic deficits.? PSYCHIATRIC: Flat affect, fluid speech, good eye contact and appropriate demeanor. Vital Signs: Vital Signs: Last Vital Signs Temp 98.4 F 03/31/25 21:46 Pulse 78 03/31/25 21:46 Resp 16 03/31/25 21:46 BP 139/79 03/31/25 21:46 Pulse Ox 98 03/31/25 21:46 O2 Del Method Room Air 03/31/25 21:46 BMI result Body Mass Index 37.6 Course Course Course Narrative: RME: 34-year-old female presents to ED for shortness of breath and chest pain on exertion for the past 4 days. Patient was seen here past Friday and return to the ED for similar symptoms. Medications Administered Discontinued Medications Generic Name Dose Route Start Last Admin Trade Name Freq PRN Reason Stop Dose Admin Lactated Ringer's 1,000 mls @ 999 mls/hr 03/31/25 19:36 03/31/25 21:34 Lr IV 03/31/25 20:36 Infused .Q1H1M ONE Infusion Ketorolac Tromethamine 15 mg 03/31/25 19:36 03/31/25 19:56 Ketorolac Tromethamine 15 Mg/Ml Vial IVPUSH 03/31/25 19:37 15 mg ONCE ONE Administration Medical Decision Making Medical Decision Making [facility] Narrative: Patient presents today with a chief complaint of chest pain. Differential diagnosis includes, but is not limited to, acute coronary syndrome, musculoskeletal pain, pneumothorax, GERD, pleurisy, pulmonary embolism, dissection, among others. I will order EKG, chest x-ray, laboratory workup including cardiac enzymes to further evaluate for etiology. Workup today is reassuring. D-dimer negative. CXR clear. Suspect MSK cause of pain. Using shared decision making, plan for discharge home to follow-up with primary care and/or specialist.? Patient understands and agrees with plan for discharge.? Discharged home in stable condition. Differential Diagnosis Differential Diagnoses: The differential diagnosis associated with the presentation includes (as above) Admission/Observation Consideration of admission/observation: Escalation of care including admission/observation considered Lab Data [facility] Lab Attestation statement: I reviewed the patient's lab results. 03/31/25 16:49 03/31/25 16:49 Labs: Lab Results 03/31/25 03/31/25 Range/Units 16:49 19:47 WBC 8.8 (4.8-10.8) X10*3/uL RBC 4.69 (4.20-5.50) X10*6/uL Hgb 13.6 (12.0-16.0) g/dl Hct 41.0 (37.0-47.0) % MCV 87.4 (80.0-98.0) fL MCH 29.0 (27.0-33.0) pg MCHC 33.2 (31.0-35.0) g/dl RDW 13.5 (11.0-16.0) % Plt Count 279 (160-400) X10*3/uL MPV 11.4 (9.4-12.3) fL Immature Gran % (Auto) 0.2 (0.0-0.4) % Neut % (Auto) 71.0 (45-73) % Lymph % (Auto) 21.5 (20-40) % Phillips % (Auto) 5.7 (2-11) % Eos % (Auto) 0.9 (0-4) % Baso % (Auto) 0.7 (0-2) % Lymph # (Auto) 1.9 (1.2-4.9) X10*3/uL Phillips # (Auto) 0.5 (0.1-1.2) X10*3/uL Eos # (Auto) 0.1 (0.0-0.4) X10*3/uL Baso # (Auto) 0.1 (0.0-0.2) X10*3/uL Abs Immat Gran (auto) 0.02 (0.00-0.03) X10*3/uL Absolute Neuts (auto) 6.2 (2.0-8.3) x10*3/uL Absolute Nucleated RBC 0.000 (0.0-0.012) X10*3/uL Nucleated RBC % (auto) 0.0 (0.0-0.2) /100WBC PT 12.3 (11.2-13.5) SEC INR 1.0 (0.9-1.1) APTT 29.8 (26.7-34.1) SEC D-Dimer High Sensitivty < 150 NG/ML Sodium 143 (135-145) mmol/L Potassium 3.7 (3.3-5.1) mmol/L Chloride 112 H (96-108) mmol/L Carbon Dioxide 24 (22-29) mmol/L Anion Gap 11 L (12-20) BUN 8 L (9-16) mg/dL Creatinine 0.63 (0.5-1.4) mg/dL Estim Creat Clear Calc 145.4 Estimated GFR > 60 Random Glucose 72 (60-115) mg/dL Calcium 9.4 (8.4-10.2) mg/dL Total Bilirubin 0.3 (0.0-1.0) mg/dL AST 20 (5-31) U/L ALT 18 (0-31) U/L Alkaline Phosphatase 62 (39-117) U/L Troponin I High Sens < 2.7 (<3.5-17.0) ng/L NT-Pro-B Natriuret Pep 46.7 (<300) pg/mL Total Protein 7.0 (6.5-8.0) g/dL Albumin 4.3 (3.5-5.0) g/dL Urine Color Yellow Urine Appearance Cloudy Urine pH 8.5 (5.0-9.0) Ur Specific [place] <= 1.005 (1.005-1.025) Urine Protein Negative (Neg-Trace) mg/dL Urine Glucose (UA) Negative (Negative) mg/dL Urine Ketones Negative (Negative) mg/dL Urine Blood Negative (Negative) Urine Nitrite Negative (Negative) Ur Leukocyte Esterase Trace H (Negative) Urine RBC 0-2 (0-2) /HPF Urine WBC 6-10 H (0-5) /HPF Ur Squamous Epith Cells 11-20 (0-2) /HPF Urine Bacteria Trace (None Seen) Hyaline Casts 0-2 (0-2) /LPF Urine Test NEGATIVE (NEGATIVE) Independent Interpretation I performed an independent interpretation of an: EKG and Plain X-Ray Interpretation: My independent interpretation of the chest x-ray reveals no consolidations, pulmonary edema, pleural effusion, pneumothorax, obvious bony abnormalities. Radiology Impression Discussion of test interpretation with radiology: I have reviewed the radiologist's reading. External Record Review External record reviewed: Inpatient record Prescription Management I considered prescription management with: Pain Medication and Other (steriods) Chronic Conditions Patient?s care impacted by: Other (bipolar disorder) Social Determinants Patient?s care significantly limited by Social Determinants of Health including: Other Social Determinant of Health Discharge Plan Discharge Clinical Impression: Dyspnea on exertion, Acute costochondritis Patient Disposition: Home, Self-Care Instructions: Costochondritis (ED), Dyspnea (ED) Additional Instructions: DIAGNOSIS & TREATMENT: You were seen in the Emergency Department for your chest discomfort. We performed an EKG, laboratory work and chest xray which did not reveal any acute abnormalities that would explain your symptoms. FURTHER CARE: We have not found any emergent physical exam or lab abnormalities that would require admission to the hospital today. Many people who come to the ER with chest discomfort do not leave with a specific diagnosis at the end of their visit. In the Emergency Department we try to make sure that there is no emergent problem that needs admission to the hospital or antibiotics right now. This does not mean that your evaluation is complete--please be sure to follow up with your regular doctor as additional testing as an outpatient may be indicated. Please be certain to drink plenty of fluids over the next several days. WHEN YOU SHOULD BE SEEN NEXT: Please follow-up with your primary care provider within the next 2-3 days for reevaluation of your symptoms. WHEN TO RETURN TO THE ED: Monitor your symptoms closely and return to the emergency department immediately for any new/worsening symptoms including: Worsening chest pain, difficulty breathing, fevers greater than 100 degrees, passing out, any new symptom that concerns you. Call 911 with any medical emergency. Prescriptions: New prednisone 50 mg tablet 50 mg PO DAILY 5 Days Qty: 5 0RF No Action sumatriptan succinate 25 mg tablet 25 mg PO QD-BID PRN (Reason: migraine) omeprazole 40 mg capsule,delayed release(DR/EC) 40 mg PO DAILY lurasidone 20 mg tablet 20 mg PO QPM Stand Alone Forms: Work/School Release Interventions: ED Discharge Assessment Last Done: 03/31/25 21:46 Discharge Date/Time: 03/31/25 21:46 Print Language: Divehi
[2025-03-31 16:56] LABS: MANUAL DIFF FLAG NO
[2025-03-31 16:59] LABS: Hematocrit 41.0 % (37.0-47.0); Hemoglobin 13.6 g/dl (12.0-16.0); Imm Gran Abs Auto 0.02 X10*3/uL (0.00-0.03); Imm Gran Pct Auto 0.2 % (0.0-0.4); Lymphocytes Absolute Auto 1.9 X10*3/uL (1.2-4.9); Mean Corpuscular HGB Conc 33.2 g/dl (31.0-35.0); Mean Corpuscular Hemoglobin 29.0 pg (27.0-33.0); Mean Corpuscular Volume 87.4 fL (80.0-98.0); NRBC Abs Auto 0.000 X10*3/uL (0.0-0.012); NRBC Pct Auto 0.0 /100WBC (0.0-0.2); Platelet Count 279 X10*3/uL (160-400); Red Blood Count 4.69 X10*6/uL (4.20-5.50); White Blood Count 8.8 X10*3/uL (4.8-10.8)
[2025-03-31 17:00] LABS: Appearance Urine Cloudy; Glucose Urine UA Negative (Negative); PH 8.5 (5.0-9.0); Specific Gravity - Urine <= 1.005 (1.005-1.025); UMIC TRIGGER UACC YES
[2025-03-31 17:02] LABS: UPreg QC Valid YES
[2025-03-31 17:07] LABS: INTERNATIONAL NORM RATIO 1.0 (0.9-1.1); Prothrombin Time 12.3 SEC (11.2-13.5)
[2025-03-31 17:08] LABS: UACC Culture Trigger YES
[2025-03-31 17:10] LABS: Partial Thromboplastin Time 29.8 SEC (26.7-34.1)
[2025-03-31 17:13] LABS: Alanine Aminotransferase 18 U/L (0-31); Albumin Level 4.3 g/dL (3.5-5.0); Alkaline Phosphatase 62 U/L (39-117); Anion Gap 11 (12-20); Aspartate Amino Transferase 20 U/L (5-31); Blood Urea Nitrogen 8 mg/dL (9-16); Calcium 9.4 mg/dL (8.4-10.2); Carbon Dioxide 24 mmol/L (22-29); Chloride 112 mmol/L (96-108); Creatinine Clr Calc Pharmacy 145.4; Estimated Glomerular Filt Rate > 60; Potassium 3.7 mmol/L (3.3-5.1); Sodium 143 mmol/L (135-145); Total Protein 7.0 g/dL (6.5-8.0)
[2025-03-31 17:24] LABS: NT Pro B Type Natriuretic Pept 46.7 pg/mL (<300)
[2025-03-31 17:25] LABS: Troponin-I High Sensitivity < 2.7 ng/L (<3.5-17.0)
[2025-03-31 19:42] VITALS: BP 126/70; PULSE 68; RESP 20; TEMP 36.8; O2SAT 100
[2025-03-31] MEDS: Lactated Ringers 1,000 ML 999 ML IV (19:57)
[2025-03-31 20:09] LABS: D Dimer High Sensitivity < 150 NG/ML
--- OUTSIDE RECORDS SUMMARY | 2025-03-31 21:05 | XMS_ITS | Clinical Summary ---
Author Organization [facility] Address [address] [place] [address] Care Team Providers Care Backwinder Name Role Phone Unavailable Primary Care Provider [...]
--- OUTSIDE RECORDS SUMMARY | 2025-03-31 21:05 | XMS_ITS | Clinical Summary ---
Author Organization [facility] ity Address [address] [place] [address] Care Team Providers Care Manager Action Name Role Phone Chrystal Mitchell MD Primary Care Provider [phone] Medical History Medical History Date Comments Non-Hodgkin's [...] age to complete this topic Care Teams Manager Action Relationship Specialty Start Date End Date Chrystal Mitchell MD [address] [place] [address] , [address] [facility] D[facility] ARANZA Pride PCP - General 08/12/14
[2025-03-31 21:42] VITALS: BP 139/79; PULSE 78; RESP 16; TEMP 36.9; O2SAT 98
[2025-03-31 21:46] VITALS: BP 139/79; PULSE 78; RESP 16; TEMP 36.9; O2SAT 98
== END 2025-03-31 21:46 | disposition home or self-care (01) ==
PROVIDERS: Physician Assistant; Emergency Provider Emergency Medicine
DX: R06.00 Dyspnea, unspecified (principal); M94.0 Chondrocostal junction syndrome [Tietze]; R07.9 Chest pain, unspecified; R06.02 Shortness of breath
CPT/HCPCS: 36415; 71045; 80053; 81001; 81025; 83880; 84484; 85025; 85379; 85610; 85730; 87086; 93005; 99284; 99285; J1885; J7120

== ENCOUNTER → 2025-03-31 16:06 | Outpatient (BNV) | payer OTHER, SELFPAY | PROVIDERS: Emergency Provider Emergency Medicine; Visit Provider Internal Medicine | DX: R07.9 Chest pain, unspecified (principal) | CPT/HCPCS: 93010 ==

== ENCOUNTER → 2025-03-31 16:37 | Outpatient (BNV) | payer OTHER, SELFPAY | PROVIDERS: Visit Provider Radiology Diagnostic Radiology | DX: R07.9 Chest pain, unspecified (principal) | CPT/HCPCS: 71045 ==

== ENCOUNTER 2025-04-25 14:20 | Outpatient (AMB) | payer OTHER, SELFPAY ==
--- OUTSIDE RECORDS SUMMARY | 2025-04-22 23:59 | XMS_ITS | Continuity of Care Document ---
Author Organization [facility] Address [address] [place] [address]- Care Team Providers Care Yarn Examiner Name Role Phone Osmin OBRIEN, Shirlene Primary Care Physician Encounter [facility] Date(s): 03/23/25 - 04/22/[address] [address]- Encounter Type: Triage Allergies, Adverse Reactions, Alerts Substance Criticality Severity Reaction Reaction Severity Status codeine pt is foster child-cannot say what reaction Active traMADOL convulsions Active morphine Resolved penicillins rash Active Claritin Active Adhesive Bandage 1 hives rips skin off Active Dogs burning eyes Active Cats burning eyes Active Latex rash burning Active 1Tape Immunizations Given and Recorded Vaccine Date Status Refusal Reason tetanus/diphtheria/pertussis, acel(Tdap) 09/24/18 Given tetanus/diphtheria/pertussis, acel(Tdap) 06/09/12 Recorded pneumococcal 23-valent vaccine 09/24/18 Given pneumococcal 23-valent vaccine 01/07/18 Recorded influenza virus vaccine, inactivated 02/27/16 Give n influenza virus vaccine, inactivated 05/10/14 Angel Luis rded influenza virus vaccine, inactivated 07/26/13 Angel Luis rded influenza virus vaccine, inactivated 06/09/12 Angel Luis rded Human Papillomavirus Vaccine 12/10/13 Recorded Human Papillomavirus Vaccine 07/26/13 Recorded Human Papillomavirus Vaccine 09/15/12 Recorded Human Papillomavirus Vaccine 04/08/07 Given Human Papillomavirus Vaccine 04/29/06 Given Human Papillomavirus Vaccine 02/11/06 Given Influenza Inactive (IM) (oldterm) 04/15/08 Given Meningococcal Conjugate Vaccine 04/08/07 Given Tet/Diphth/Acel, Pertussis (oldterm) 04/08/07 Give n tetanus-diphtheria toxoids (Td) 09/14/03 Given Poliovirus Vaccine, Inactivated 09/19/97 Given Measles/Mumps/Rubella Virus Vaccine 09/19/97 Given Measles/Mumps/Rubella Virus Vaccine 08/20/93 Given Diphth/Pertussis,Acel/Tetanus (oldterm) 09/19/97 G iven Diphth/Pertussis,Acel/Tetanus (oldterm) 11/21/93 G iven Diphth/Pertussis,Acel/Tetanus (oldterm) 92 G iven Diphth/Pertussis,Acel/Tetanus (oldterm) 92 G iven Diphth/Pertussis,Acel/Tetanus (oldterm) 92 G iven Miscellaneous Vaccine 1 11/21/93 Given Miscellaneous Vaccine 2 92 Given Miscellaneous Vaccine 3 92 Given Haemophilus B Conj Vaccine (oldterm) 08/20/93 Give n Haemophilus B Conj Vaccine (oldterm) 92 Give n Haemophilus B Conj Vaccine (oldterm) 92 Give n Haemophilus B Conj Vaccine (oldterm) 92 Give n Hepatitis B Vaccine (old term) 92 Given Hepatitis B Vaccine (old term) 92 Given Hepatitis B Vaccine (old term) 92 Given 1Admin Note: OPV 2Admin Note: OPV 3Admin Note: OPV Medications Advair Diskus 500 mcg-50 mcg inhalation powder 1, puffs, Inhalation, 2 times a day, # 180 each, Refills 0, Tot. Refills 0, Maintenance, 05/07/23 4:25:00 PM EST, Powder, Route to Pharmacy Electronically, [id number], [facility]/pharmacy #[id number], 162, cm, 05/07/23 15:31:00 EST, Height Start Date: 05/07/23 Status: Ordered Medication Dispense Status: Completed Quantity: 180.0 Unit: each Total Allowed Fills: 1 Fills Dispensed: 0 Albuterol (Eqv-ProAir HFA) 90 mcg/inh inhalation aerosol 2 puffs, Inhalation, Every 6 hours, PRN Wheezing/Shortness of Breath, # 18 Gm, 10 Refills, Maintenance, 05/07/23 4:25:00 PM EST, [facility]/pharmacy #[id number], 2 puffs Inhalation Every 6 hours,PRN:Wheezing/Shortness of Breath, 162, cm, 05/07/23 15:31:00 EST, Height Start Date: 05/07/23 Status: Ordered Medication Dispense Status: Completed Quantity: 18.0 Unit: g Total Allowed Fills: 11 Fills Dispensed: 0 Asthma Nebulizer Asthma Nebulizer, See Instructions, # 1 each, Refills 0, Tot. Refills 0, Maintenance, Nebulizer forasthma medication such as albuterol Dx: Asthma ICD10 code: J45 Length of need: 99, 04/10/21 12:48:00 PM EST, Supply Start Date: 04/10/21 Status: Ordered Medication Dispense Status: Completed Quantity: 1.0 Unit: each Total Allowed Fills: 1 Fills Dispensed: 0 Diflucan 150 mg oral tablet 1 tablet = 150 mg, By Mouth, Once, # 1 tablet, 0 Refills, Soft Stop, 03/17/25 12:10:00 PM EST, Tablet, [facility]/pharmacy #[id number], Partial fill upon patient request if the prescription is for a schedule II opioid drug., 162, cm, 02/14/25 12:36:00 EDT, Height Start Date: 03/17/25 Status: Ordered Medication Dispense Status: Completed Quantity: 1.0 Unit: tablet Total Allowed Fills: 1 Fills Dispensed: 0 ferrous sulfate 325 mg oral tablet See Instructions, TAKE 1 TABLET BY MOUTH EVERY OTHER DAY, MAY TAKE WITH FOOD TO MINIMIZE ABDOMINAL DISCOMFORT, # 15 tablet, 11 Refills, Soft Stop, 05/07/23 5:35:00 PM EST, [facility]/pharmacy #[id number], 162, cm, 05/07/23 15:31:00 EST, Height Start Date: 05/07/23 Status: Ordered Medication Dispense Status: Completed Quantity: 15.0 Unit: tablet Total Allowed Fills: 12 Fills Dispensed: 0 M-Tri Plus oral tablet 1 tablet, By Mouth, Daily, # 90 tablet, 3 Refills, Maintenance, 09/14/24 1:44:00 PM EDT, [facility]/pharmacy#[id number], Partial fill upon patient request if the prescription is for a schedule II opioid drug., 1 tablet By Mouth Daily, 162, cm, 09/14/24 13:26:00 EDT, Height Start Date: 09/14/24 Status: Ordered Medication Dispense Status: Completed Quantity: 90.0 Unit: tablet Total Allowed Fills: 4 Fills Dispensed: 0 Indications: Other specified health status; naproxen 500 mg oral tablet See Instructions, TAKE 1 TABLET BY MOUTH TWICE A DAY NEEDED FOR MODERATE PAIN, # 60 tablet, 0 Refills, Maintenance, 02/05/24 12:44:00 PM EDT, [id number], 162, cm, 11/17/23 17:58:00 EDT, Height Start Date: 02/05/24 Status: Ordered Medication Dispense Status: Completed Quantity: 60.0 Unit: tablet Total Allowed Fills: 1 Fills Dispensed: 0 Neutral wrist splint, bilateral Neutral wrist splint, bilateral, See Instructions, # 2 each, Refills 0, Tot. Refills 0, Maintenance, Dx: Carpal Tunnel Syndrome Wear while sleeping ISIDRA 1 year Please fax to [facility], 11/20/21 1:11:00 PM EDT, Supply Start Date: 11/20/21 Status: Ordered Medication Dispense Status: Completed Quantity: 2.0 Unit: each Total Allowed Fills: 1 Fills Dispensed: 0 Indications: Carpal tunnel syndrome, unspecified upper limb; omeprazole 40 mg oral enteric coated capsule 1 capsule = 40 mg, By Mouth, Daily, # 90 capsule, 1 Refills, Maintenance, 08/27/24 3:25:00 PM EDT, EC Capsule, [facility]/pharmacy #[id number], 162, cm, 11/17/23 17:58:00 EDT, Height Start Date: 08/27/24 Status: Ordered Medication Dispense Status: Completed Quantity: 90.0 Unit: capsule Total Allowed Fills: 2 Fills Dispensed: 0 Right ankle brace Right ankle brace, See Instructions, # 1 each, Refills 0, Tot. Refills 0, Maintenance, 1 right ankle brace ICD 10: S93. 401A Please [facility] to [facility] Thank you, Jarad,11/15/21 1:35:00 PM EDT, Supply Start Date: 11/15/21 Status: Ordered Medication Dispense Status: Completed Quantity: 1.0 Unit: each Total Allowed Fills: 1 Fills Dispensed: 0 SUMAtriptan 25 mg oral tablet See Instructions, TAKE 1 TABLET BY MOUTH EVERY DAY NEEDED FOR MIGRANE MAY REPEAT 1 DOSE MAX OF 2TABS IN 24 HOURS, # 9 tablet, 1 Refills, Maintenance, 09/30/24 2:44:00 PM EDT, [id number], 162,cm, 09/14/24 13:26:00 EDT, Height Start Date: 09/30/24 Status: Ordered Medication Dispense Status: Completed Quantity: 9.0 Unit: tablet Total Allowed Fills: 1 Fills Dispensed: 0 Wixela Inhub 500 mcg-50 mcg inhalation powder 1 inhalation, Inhalation, 2 times a day, rinse mouth and throat after use, # 1 each, 12 Refills, Maintenance, 05/07/23 4:26:00 PM EST, Powder, [id number], Partial fill upon patient request ifthe prescription is for a schedule II opioid drug., 1 inhalation Inhalation 2 times a day,Instr:rinse mouth and throat after use, 162, cm, 05/07/23 15:31:00 EST, Height Start Date: 05/07/23 Status: Ordered Medication Dispense Status: Completed Quantity: 1.0 Unit: each Total Allowed Fills: 13 Fills Dispensed: 0 Zepbound Pen 10 mg/0.5 mL subcutaneous solution = 10 mg, Subcutaneous Injection, Every week, rotate injection sites, dose increase, # 2 mL, 2 Refills, Maintenance, 03/28/25 8:57:00 PM EST, Solution, [id number], Partial fill upon patient request if the prescription is for a schedule II opioid drug., 162, cm, 02/14/25 12:36:00 EDT, Height Start Date: 03/28/25 Status: Ordered Medication Dispense Status: Completed Quantity: 2.0 Unit: mL Total Allowed Fills: 3 Fills Dispensed: 0 Problem List Condition Confirmation Course Effective Dates Status Health St atus Informant Asthma Confirmed Active Bipolar disorder, followed by [facility] Confirmed Active Carpal tunnel syndrome Confirmed Active Foot pain Confirmed Active GERD (gastroesophageal reflux disease) Confirmed Active Hepatitis C antibody test positive Confirmed Active H/o T-Cell Lymphoma, 2011, s/p chemotherapy Confirmed Active Hypoglycemia Confirmed Active Kidney stones Confirmed Active Migraine Confirmed Active Health jail, active care coordination [facility] safety program coordinator [phone] Confirmed Active Severe obesity (BMI 35.0-39.9) with comorbidity Confirmed Active Social History Social History Type Response Sexual Sexually involved in last 6 months: Yes. Other sexual concerns: monogomous x 4 years. Number of partners in last 6 months: 1. Gender of partner(s): Male. STD/HIV prevention: Condom use never. Smoking Status Never (less than 100 in lifetime) entered on: 09/14/24 Sex Female Sex Representation Female (finding) Patient Care team information Care Team Personnel Name: Su Walsh NP Position: [facility] PCO Associate Professional Member Role: Lifetime Consulting Provider Address: [address] [place] [address] Telecom: Name: Betzaida Knight RN Position: [facility] MR W/ Merge Member Role: Primary Care Nurse Name: Katy Arana MA Position: [facility] Office Staff Member Role: Primary Care Nurse Name: Shirlene Solorio MD Position: [facility] Physician - Primary Care Member Role: PCP Address: [address] [place] [id number] Telecom: Care Team Related Persons Name: KAMERON DORADO Name: DYLON SPARKS Name: ELLA CLARK Name: ELLA YU Insurance Providers Guarantor name: [facility] Plan Information #: 1 Payer: [facility] Payer Identifier: NA Member Number: [id number] Group Number: [id number] Subscriber Identifier: NA Relationship to Subscriber: self Coverage Type: Medicaid (Managed Care) Coverage Verification Date: NA Telecom: NA Address: NA
[2025-04-25 14:39] VITALS: BP 100/60; PULSE 82; BMI 34.4
--- NOTE | 2025-04-25 14:39 | A.OFFVIS_ITS ---
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/ [facility] ed fu/ irreg heart rate (HS) Clinical Program Director Required: No Accompanied by: Mother Allergies codeine (CODEINE) Allergy (Intermediate, Verified 04/25/25 14:44) HIVES Penicillins (PCN) Allergy (Intermediate, Verified 04/25/25 14:44) HIVES tramadol (TRAMADOL) Allergy (Intermediate, Verified 04/25/25 14:44) HIVES latex (LATEX) Allergy (Mild, Verified 04/25/25 14:44) RASH adhesive tape Allergy (Unknown, Verified 04/25/25 14:44) RASH lidocaine (LIDOCAINE) Allergy (Unknown, Verified 04/25/25 14:44) RASH loratadine (From CLARITIN) Allergy (Unknown, Verified 04/25/25 14:44) LIPS GO NUMB morphine (MORPHINE) Adverse Reaction (Unknown, Verified 04/25/25 14:44) VOMITING Medication List - Last Reconciled 04/25/25 by Nick Joshua NP ferrous sulfate 325 mg PO DAILY naproxen 500 mg PO DAILY omeprazole 40 mg PO DAILY sumatriptan succinate 25 mg PO QD-BID PRN tirzepatide (weight loss) (Zepbound) 10 mg subcut QWEEK HPI Comments Details: This is a 35-year-old female patient primary care for further evaluation of chest pain and palpitations. Moving forward, patient will be under Dr. Landeros's care as he is the rounding heddle machine operator this week. 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 Patient does note that last year she was noted to have a lymph node for which patient was referred to Oncology however never followed up after initial visit. Patient is planning to follow up with them next. Patient recently had 2 emergency room visits for chest pain and palpitations. ACS was ruled out. Patient with no known history of coronary artery disease, ischemic disease, or cardiomyopathy. Patient however was noted to have PVCs on 1 of the EKGs during her visit. Patient does note that she has been having random episodes of tachycardia and skipped beats. Patient also describes chest pain sometimes associated with the palpitations. Patient does have history of migraines for which most recently patient has been drinking more caffeinated beverages. Patient is also on Zepbound for weight loss and has lost about 70 lb in the last 4 months. Patient states that she has stopped smoking marijuana and denies smoking cigarettes. Drinks alcohol occasionally only. Patient does have a significant family history of coronary artery disease with both her mother and father having heart attacks and receiving stents. [facility] Medical History T-cell lymphoma PTSD (post-traumatic stress disorder) Asthma Family History Mother History of heart attack Hx of heart valve stenosis Father History of heart attack Hx of heart valve stenosis Social History Alcohol intake: never Patient Tobacco Use Status: Never used Tobacco Substance Use Type: Marijuana Review of Systems Const Denies daytime sleepiness, Denies difficulty sleeping, Denies snoring, Denies stops breathing during sleep and Denies weakness Card Denies chest pain, Reports rapid heart rate, Denies irregular heart rhythm, Denies claudication, Denies leg edema, Denies lightheadedness, Denies palpitations, Denies dyspnea, Denies dyspnea on exertion, Denies orthopnea, Denies paroxysmal nocturnal dyspnea and Denies slow heart rate Resp Denies cough, Denies dyspnea, Denies dyspnea on exertion and Denies snoring GI Reports no additional complaints, Denies hematochezia, Denies change in stool character and Denies dyspepsia Musc Denies abnormal gait, Denies muscle weakness and Denies numbness Neuro Denies abnormal gait, Denies numbness and Denies weakness Endo Denies palpitations Physical Exam Vital Signs: Last Vital Signs Pulse 82 04/25/25 14:39 BP 100/60 04/25/25 14:39 BMI result Body Mass Index 34.4 Const General: cooperative, healthy appearing, comfortable and no acute distress Orientation/consciousness: patient oriented x3 HEENT Head: Yes normal to inspection Neck Neck: Yes normal visual inspection, Yes trachea midline and Yes supple Chest Chest palpation & inspection: normal inspection of the chest Resp Effort & Inspection: normal respiratory effort Auscultation: clear to auscultation bilaterally, no crackles, no rales, no rhonchi and no wheezes Cardio Jugular venous distension: no JVD Palpation: normal PMI Rate: regular rate Rhythm: regular rhythm Heart sounds: S1 normal heart sound present, S2 normal heart sound present, no click, no gallops, no murmurs and no rubs Peripheral pulses: Peripheral pulses 2+ throughout GI Inspection: Yes normal to inspection Palpation (GI): Soft to palpation Auscultation: normal bowel sounds Skin General skin exam: no rashes or lesions noted Neuro General: patient oriented x3 Extrem General: Yes normal to inspection, No no pedal edema and No calf tenderness Psych Appearance: grossly normal Mental Status: mental status grossly normal Speech and movement: Normal speech and movement present Assessment & Plan Assessment & Plan (1) Chest pain: Code(s): R07.9 - Chest pain, unspecified Category: Medical (2) Palpitations: Code(s): R00.2 - Palpitations Category: Medical Plan Patient's reports of chest discomfort is atypical in nature. These are mostly congruent with episodes of palpitations where she is feeling skipped beats or racing heart. On an EKG recently in the ER, PVCs were noted. Given her significant family history of premature coronary artery disease, we will get a treadmill stress test to assess for ischemic changes. For reports of palpitations, contributing factors could be the high caffeine intake, stress, and recent rapid weight loss. However, we will get a Holter study to assess for potential arrhythmias and burden of ectopies. We will also get a echocardiogram to assess for cardiac structure and function. Advised patient to contact her Oncology team for a follow up appointment. Advised on heart healthy diet, adequate hydration, avoiding stimulants such as caffeinated beverages and alcohol, stress mitigation strategies, and management of vascular risk factors. Follow up after testings. In the interim, patient will call the office with any concerns or change in symptoms. Advised to seek ER care in case of exertional chest pain not resolved rest. This note was generated using voice recognition software. While every effort has been made to ensure accuracy and proper structural layout worker, there may be occasional errors that could affect the content or meaning of the described symptoms. Orders: Orders CA stress test Today R00.2 - Palpitations, R07.9 - Chest pain, unspecified ECG 3 day holter monitor Today R00.2 - Palpitations CA echo transthoracic complete Today R07.9 - Chest pain, unspecified Medications: Discontinued prednisone Discontinued Reason: Patient no longer taking 50 mg PO DAILY 5 days 5 tabs 0RF Coding Level of Care Code New Pt Level 4 (82987) Add On Problem Visit Only Diagnoses Chest pain R07.9 Palpitations R00.2 Time Spent (min) 33 Comment Time spent in reviewing the chart, test results, assessment, counseling and documentation.
--- OUTSIDE RECORDS SUMMARY | 2025-04-25 20:44 | XMS_ITS | Clinical Summary ---
Author Organization [facility] ity Address [address] [place] [address] Care Team Providers Care School Supervisor Name Role Phone Chrystal Mitchell MD Primary Care Provider Medical History Medical History Date Comments Non-Hodgkin's [...] on file Sexual Orientation Not on file Last Filed Vital Signs [...] age to complete this topic Care Teams School Supervisor Relationship Specialty Start Date End Date Chrystal Mitchell MD [address] [place] [address] , [address] [facility] ARANZA Pride PCP - General 08/12/14
--- OUTSIDE RECORDS SUMMARY | 2025-04-25 20:44 | XMS_ITS | Clinical Summary ---
Author Organization [facility] Prior to 10/09/24 Address [address] [place] [address] Care Team Providers Care Virtualization Consultant Name Role Phone Unavailable Primary Care Provider [...] on patient's age to complete this topic Insurance Payer Benefit Plan / Group Subscriber ID Effective Dates Phone Address [facility] [id number] 2022-Present 1 [facility] [address] [place] [address] HMO
== END 2025-04-25 15:11 | disposition home or self-care (01) ==
LOC: HO.HCS 14:21
DX: R07.9 Chest pain, unspecified (principal); R00.2 Palpitations
CPT/HCPCS: 99204; G2211

== ENCOUNTER → 2025-04-25 14:20 | Outpatient (BNVA) | payer OTHER, SELFPAY | DX: R07.89 Other chest pain (principal); R00.2 Palpitations; Z82.49 Family history of ischemic heart disease and other diseases of the circulatory system | CPT/HCPCS: 99202 ==

== ENCOUNTER 2025-04-30 12:54 | Emergency (ER) | payer OTHER, SELFPAY ==
--- OUTSIDE RECORDS SUMMARY | 2025-04-29 23:59 | XMS_ITS | Continuity of Care Document ---
Author Organization [facility] Address [address] [place] [address]- Care Team Providers Care Grades 1 Thru 6 Home Teacher Name Role Phone Osmin OBRIEN, Shirlene Primary Care Physician Encounter [facility] Date(s): 03/30/25 - 04/29/[address] [address]- Encounter Type: Triage Allergies, Adverse Reactions, Alerts [...] PM EST, Powder, Route to Pharmacy Electronically, [id number], [facility]/pharmacy #[id number], 162, cm, 05/07/23 15:31:00 EST, Height Start Date: 05/07/23 Status: Ordered Medication Dispense Status: Completed Quantity: 180.0 Unit: each Total Allowed Fills: 1 Fills Dispensed: 0 Albuterol (Eqv-ProAir HFA) 90 mcg/inh inhalation aerosol 2 puffs, Inhalation, Every 6 hours, PRN Wheezing/Shortness of Breath, # 18 Gm, 10 Refills, Maintenance, 05/07/23 4:25:00 PM EST, [facility]/pharmacy #[id number], 2 puffs Inhalation Every 6 hours,PRN:Wheezing/Shortness [...] Soft Stop, 03/17/25 12:10:00 PM EST, Tablet, [facility]/pharmacy #[id number], Partial fill upon patient request if [...] Refills, Soft Stop, 05/07/23 5:35:00 PM EST, [facility]/pharmacy #[id number], 162, cm, 05/07/23 15:31:00 EST, Height Start Date: 05/07/23 Status: Ordered Medication Dispense Status: Completed Quantity: 15.0 Unit: tablet Total Allowed Fills: 12 Fills Dispensed: 0 M-Tri Plus oral tablet 1 tablet, By Mouth, Daily, # 90 tablet, 3 Refills, Maintenance, 09/14/24 1:44:00 PM EDT, [facility]/pharmacy#2339, Partial fill upon patient request if the [...] Maintenance, 02/05/24 12:44:00 PM EDT, [id number], 162, cm, 11/17/23 17:58:00 EDT, Height Start [...] Maintenance, 08/27/24 3:25:00 PM EDT, EC Capsule, [facility]/pharmacy #[id number], 162, cm, 11/17/23 17:58:00 EDT, Height Start Date: 08/27/24 Status: Ordered Medication Dispense Status: Completed Quantity: 90.0 Unit: capsule Total Allowed Fills: 2 Fills Dispensed: 0 Right ankle brace Right ankle brace, See Instructions, # 1 each, Refills 0, Tot. Refills 0, Maintenance, 1 right ankle brace ICD 10: S93. 401A Please take to [facility] or [facility] Thank you, Jarad,11/15/21 1:35:00 PM EDT, Supply [...] Maintenance, 09/30/24 2:44:00 PM EDT, [facility], 162,cm, 09/14/24 13:26:00 EDT, Height Start Date: 09/30/24 Status: Ordered Medication Dispense Status: Completed Quantity: 9.0 Unit: tablet Total Allowed Fills: 1 Fills Dispensed: 0 Wixela Inhub 500 mcg-50 mcg inhalation powder 1 inhalation, Inhalation, 2 times a day, rinse mouth and throat after use, # 1 each, 12 Refills, Maintenance, 05/07/23 4:26:00 PM EST, Powder, [id number], Partial fill upon patient request ifthe prescription [...] Maintenance, 03/28/25 8:57:00 PM EST, Solution, [id number], Partial fill upon patient request if the [...] stones Confirmed Active Migraine Confirmed Active Health skilled nursing, active care coordination [facility] coordinator [phone] Confirmed Active Severe obesity (BMI 35.0-39.9) with [...] Team Personnel Name: Su Walsh NP Position: [facility] PCO Associate Professional Member Role: Lifetime Consulting Provider Address: [address] [place] [address] Telecom: Name: Betzaida Knight RN Position: [facility] MR W/ Merge Member Role: Primary Care Nurse Name: Katy Arana MA Position: [facility] Office Staff Member Role: Primary Care Nurse Name: Shirlene Solorio MD Position: [facility] Physician - Primary Care Member Role: PCP Address: [address] [place] [address] Telecom: Care Team Related Persons Name: KAMERON DORADO Name: DYLON SPARKS Name: ELLA CLARK Name: ELLA YU Insurance Providers Guarantor name: [facility] Health Plan Information #: 1 Payer: [facility] Payer Identifier: NA Member Number: [id number] Group Number: [id number] Subscriber Identifier: NA Relationship to Subscriber: self Coverage Type: Medicaid (Managed Care) Coverage Verification Date: NA Telecom: NA Address: NA
[2025-04-30] VITALS (7 sets, daily range): BP systolic 0–119; BP diastolic 0–72; PULSE 99–132; RESP 16–20; TEMP -17.7–37.2; O2SAT 95–98; BMI 35.5
--- NOTE | ~2025-04-30 | XR_ITS ---
CLINICAL HISTORY: cough 1 view chest x-ray Comparison: CR - XR CHEST 1V - 03/31/25 17:06 EST Findings: Right upper lobe opacity suggesting a small infiltrate. No pleural effusion or pneumothorax. Normal size heart. Multiple left neck clips. No acute fracture. IMPRESSION: Right upper lobe opacity suggesting a small infiltrate. This document has been electronically signed by: Tiara Cornelius DO on 04/30/2025 14:43:41
--- NOTE | ~2025-04-30 | CT_ITS ---
CLINICAL HISTORY: SOB, hx of CA CT ANGIOGRAPHY CHEST WITH CONTRAST. 3D POSTPROCESSING. Comparison: None provided Findings: The heart is normal size. RV/LV ratio is normal. The thoracic aorta is normal caliber. No acute pulmonary embolus. The visualized thyroid and mediastinum are unremarkable. No consolidation, pleural effusion or pneumothorax. 3 mm and 4 mm nonobstructing calculi in the left kidney. The bones are intact. IMPRESSION: 1. No pulmonary emboli. This document has been electronically signed by: Tiara Cornelius DO on 04/30/2025 16:57:33
--- OUTSIDE RECORDS SUMMARY | 2025-04-30 13:21 | XMS_ITS | Clinical Summary ---
Author Organization [facility] ity Address [address] [place] [address] Care Team Providers Care Padding Machine Operator Name Role Phone Chrystal Mitchell MD Primary Care Provider [phone] Medical History Medical History Date Comments Non-Hodgkin's [...] age to complete this topic Care Teams Padding Machine Operator Relationship Specialty Start Date End Date Chrystal Mitchell MD [address] [place] [address] , [address] [facility] ARANZA Pride PCP - General 08/12/14
--- OUTSIDE RECORDS SUMMARY | 2025-04-30 13:21 | XMS_ITS | Clinical Summary ---
Author Organization [facility] Prior to 10/09/24 Address [address] [place] [address] Care Team Providers Care Roll Icer Name Role Phone Unavailable Primary Care Provider [...] Group Subscriber ID Effective Dates Phone Address [facility] [id number] 2022-Present [address] [facility] [address] [place] [address] HMO
--- NOTE | 2025-04-30 13:32 | ED_ITS ---
HPI - General Adult General Chief complaint: Upper Respiratory Symptoms Stated complaint: FLU-LIKE,COUGH,FEVER,CHILLS,NAUSEA PER EMS Time Seen by Provider: 04/30/25 13:32 Source: patient and EMS Mode of arrival: EMS Limitations: no limitations History of Present Illness ED Provider: Anna Olmedo PA-C HPI narrative: Patient is a 35 year old female with a history of T-Cell lymphoma, PTSD, and asthma presenting to the emergency department today with a cough and feeling generally unwell. Patient states that over the last few days she has felt generally unwell with a cough and intermittent fevers. Patient states that she went to an urgent care and was told she has bronchitis. Patient denies any other complaints at this time. Related Data Home Medications ?Medication ?Instructions ?Recorded ?Confirmed omeprazole 40 mg capsule,delayed 40 mg PO DAILY 08/08/24 release sumatriptan succinate 25 mg tablet 25 mg PO QD-BID PRN migraine 08/08/24 08/08/24 ferrous sulfate 325 mg (65 mg 325 mg PO DAILY 04/25/25 04/25/25 iron) tablet naproxen 500 mg tablet 500 mg PO DAILY 04/25/25 tirzepatide (weight loss) 10 10 mg subcut QWEEK 04/25/25 mg/0.5 mL subcutaneous pen injector (Zepbound) Previous Rx's ?Medication ?Instructions ?Recorded azithromycin 250 mg tablet 250 mg PO DAILY 6 days #6 t abs 04/30/25 cefpodoxime 200 mg tablet 200 mg PO Q12H 7 days #14 ta bs 04/30/25 Allergies Allergy/AdvReac Type Severity Reaction Status Date / Time codeine (CODEINE) Allergy Intermediate HIVES Verified 04/30/25 12:59 Penicillins (PCN) Allergy Intermediate HIVES Verified 04/30/25 12:59 tramadol (TRAMADOL) Allergy Intermediate HIVES Verified 04/30/25 12:59 latex (LATEX) Allergy Mild RASH Verified 04/30/25 12:59 adhesive tape Allergy Unknown RASH Verified 04/30/25 12:59 lidocaine (LIDOCAINE) Allergy Unknown RASH Verified 04/30/25 12:59 loratadine (From CLARITIN) Allergy Unknown LIPS GO Verified 04/30/25 12:59 NUMB morphine (MORPHINE) AdvReac Unknown VOMITING Verified 04/30/25 12:59 Review of Systems 2 Constitutional: Constitutional: Reports as per HPI Eyes: Eyes: Reports as per HPI ENT: Reports as per HPI Cardiovascular: Cardiovascular: Reports as per HPI Respiratory: Respiratory: Reports as per HPI Gastrointestinal: Gastrointestinal: Reports as per HPI Genitourinary: Genitourinary: Reports as per HPI Musculoskeletal: Musculoskeletal: Reports as per HPI Integumentary/Breasts: Skin/Breast: Reports as per HPI Neurologic: Reports as per HPI Psychiatric: Psychiatric: Reports as per HPI Endocrine: Endocrine: Reports as per HPI Hematologic/Lymphatic: Hematologic/Lymphatic: Reports as per HPI Allergic/Immunologic: Allergic/Immunologic: Reports as per HPI [facility] Past Medical History Attestation statement: The following information was validated with the patient. Source: old records reviewed and nursing notes reviewed Medical History T-cell lymphoma PTSD (post-traumatic stress disorder) Asthma Family History Family History Mother History of heart attack Hx of heart valve stenosis Father History of heart attack Hx of heart valve stenosis Social History Social History Alcohol intake: never Patient Tobacco Use Status: Never used Tobacco Smoked in Last 30 Days: No Use of substances other than those prescribed or required for medical reasons: No Substance Use Type: Marijuana Advance Directives: No Advance Directives Information Provided: Yes Do you have a plan to hurt others: No Plan Patient : No Physical Exam ED Vital Signs: Vital Signs - 24 hr 04/30/25 12:58 04/30/25 13:07 04/30/25 17:35 Temperature 98.9 F 98.9 F 98.5 F Pulse Rate 116 H 116 H 118 H Respiratory Rate 18 18 16 Blood Pressure 116/67 116/67 119/69 Pulse Oximetry 96 96 95 Oxygen Delivery Method Room Air Room Air Room Air 04/30/25 19:10 04/30/25 20:04 Temperature 97.9 F Pulse Rate 107 H 99 Respiratory Rate 20 Blood Pressure 102/66 Pulse Oximetry 96 Oxygen Delivery Method Room Air BMI result Body Mass Index 35.5 Const General: cooperative, no acute distress, alert and awake Nutritional Appearance: well nourished Orientation/consciousness: patient oriented x3 HENMT Head: Yes normal to inspection and Yes atraumatic Ears: hearing grossly normal bilaterally and external ears normal General nose exam: Normal external nose present, no nasal discharge noted and no epistaxis Face and sinus: Yes normal facial exam, No abrasion and No laceration Mouth: Normal oral and palatal mucosa present, no drooling and no muffled voice Eyes General: appearance normal, both eyes and all related structures Periorbital: periorbital findings normal Eyelids: Yes eyelids normal Conjunctivae: conjunctivae normal Pupils: Equal, round and reactive pupils present EOM: EOMs intact bilaterally Neck Neck: Yes normal visual inspection and Yes full ROM Resp Effort & Inspection: normal respiratory effort and able to speak in complete sentences Cardio Rate: tachycardic Rhythm: regular rhythm Neuro General: patient oriented x3, moves all extremities and CN's II-XI intact bilaterally Cranial nerves: Yes Equal, round and reactive pupils present Cognition (Neuro): normal cognition Extrem General: Yes normal to inspection, Yes full ROM and Yes capillary refill normal Psych Appearance: grossly normal Mental Status: mental status grossly normal Affect: normal affect Attitude: cooperative Thought process: Normal thought process present Thought content: Normal thought content present Insight: Good insight present (Psych) Course Course Course Narrative: 8:09 PM 04/30/2025 (Stefania Huff NP): The patient was signed out to me at 1900. Upon reassessment, her heart rate is 99. I reviewed her workup, she has findings of a developing pneumonia. She was given Rocephin, azithromycin while in the ED. Given her documented history of penicillin allergies, I will discharge her home with oral cefpodoxime, as well as azithromycin. I recommended she follows up with the PCP within the next several days. Provided return precautions to the ED for which she is agreeable Will proceed with DC. . Medications Administered Discontinued Medications Generic Name Dose Route Start Last Admin Trade Name Freq PRN Reason Stop Dose Admin Azithromycin 500 mg 04/30/25 14:46 04/30/25 15:33 Azithromycin 500 Mg Tablet PO 04/30/25 14:47 500 mg ONCE ONE Administration Sodium Chloride 1,000 mls @ 999 mls/hr 04/30/25 13:45 04/30/25 14:30 Ns IV 04/30/25 14:45 Infused .Q1H1M JUAN ALBERTO Infusion Ceftriaxone Sodium 2 gm/ 50 mls @ 100 mls/hr 04/30/25 14:46 04/30/25 16:17 Sodium Chloride IV 04/30/25 15:15 Infused ONCE ONE Infusion Acetaminophen 1,000 mg in 100 mls @ 400 mls/hr 04/30/25 17:28 04/30/25 18:10 Ofirmev IV 04/30/25 17:42 Infused ONCE ONE Infusion Sodium Chloride 1,000 mls @ 999 mls/hr 04/30/25 17:30 04/30/25 18:41 Ns IV 04/30/25 18:30 Infused .Q1H1M JUAN ALBERTO Infusion Iohexol 100 ml 04/30/25 15:09 04/30/25 15:09 Iohexol 350 Mg/Ml 100 Ml Infus..Btl IV 04/30/25 15:10 65 ml ONCE ONE Administration Ketorolac Tromethamine 15 mg 04/30/25 13:40 04/30/25 13:59 Ketorolac Tromethamine 15 Mg/Ml Vial IVPUSH 04/30/25 13:41 15 mg ONCE ONE Administration Methylprednisolone Sodium Succinate 60 mg 04/30/25 13:39 04/30/25 13:59 Methylprednisolone Sod Succ 125 Mg/2 Ml Vial IVPUSH 04/30/25 13:40 60 mg ONCE ONE Administration Medical Decision Making Medical Decision Making [facility] Narrative: Patient is a 35 year old female with a history of T-Cell lymphoma, PTSD, and asthma presenting to the emergency department today with a cough and feeling generally unwell. Patient's physical exam was as noted in the physical exam portion of this note. Patient's blood work was unremarkable. Patient's chest x-ray showed right upper lobe opacity suggesting a small infiltrate. Patient's CT PE study showed no evidence of pulmonary emboli. Patient's COVID-19, influenza, and RSV testing was negative. Patient received IV toradol, fluids, tylenol, solu-medrol, ceftriaxone and PO Azithromycin which, upon re-evaluation, she stated it helped her symptoms some. Patient's clinical presentation is not consistent with sepsis (@1742). I explained my physical exam findings as well as all test results to the patient. I answered all questions asked by the patient. Patient continued to be tachycardic. More IV fluids ordered. Patient signed out to Stefania Bonica, AUTOMOTIVE CUSTOMER EXPERIENCE ADVISOR - pending completion of IV fluids and re-evaluation of tachycardia. Differential Diagnosis Differential Diagnoses: The differential diagnosis associated with the presentation includes Influenza RSV Pneumonia COVID-19 Asthma exac Admission/Observation Consideration of admission/observation: Escalation of care including admission/observation considered Patient's disposition will be determined after completion of IV fluids and re- evaluation. Lab Data [facility] Lab Attestation statement: I reviewed the patient's lab results. My interpretation of these results are in the [facility] Rationale portion of this note. 04/30/25 13:53 04/30/25 13:53 Labs: Lab Results 04/30/25 04/30/25 04/30/25 Range/Units 13:53 13:57 15:21 WBC 5.1 (4.8-10.8) X10*3/uL RBC 4.68 (4.20-5.50) X10*6/uL Hgb 13.7 (12.0-16.0) g/dl Hct 40.4 (37.0-47.0) % MCV 86.3 (80.0-98.0) fL MCH 29.3 (27.0-33.0) pg MCHC 33.9 (31.0-35.0) g/dl RDW 13.5 (11.0-16.0) % Plt Count 230 (160-400) X10*3/uL MPV 11.2 (9.4-12.3) fL Immature Gran % (Auto) 0.2 (0.0-0.4) % Neut % (Auto) 79.9 H (45-73) % Lymph % (Auto) 7.3 L (20-40) % [place] % (Auto) 12.2 H (2-11) % Eos % (Auto) 0.0 (0-4) % Baso % (Auto) 0.4 (0-2) % Lymph # (Auto) 0.4 L (1.2-4.9) X10*3/uL [place] # (Auto) 0.6 (0.1-1.2) X10*3/uL Eos # (Auto) 0.0 (0.0-0.4) X10*3/uL Baso # (Auto) 0.0 (0.0-0.2) X10*3/uL Abs Immat Gran (auto) 0.01 (0.00-0.03) X10*3/uL Absolute Neuts (auto) 4.1 (2.0-8.3) x10*3/uL Absolute Nucleated RBC 0.000 (0.0-0.012) X10*3/uL Nucleated RBC % (auto) 0.0 (0.0-0.2) /100WBC Sodium 141 (135-145) mmol/L Potassium 3.4 (3.3-5.1) mmol/L Chloride 107 (96-108) mmol/L Carbon Dioxide 25 (22-29) mmol/L Anion Gap 12 (12-20) BUN 6 L (9-16) mg/dL Creatinine 0.75 (0.5-1.4) mg/dL Estim Creat Clear Calc 118.4 Estimated GFR > 60 Random Glucose 90 (60-115) mg/dL Lactic Acid 0.6 (0.5-2.0) mmol/L Calcium 9.4 (8.4-10.2) mg/dL Magnesium 2.1 (1.6-2.6) mg/dL Total Bilirubin 0.3 (0.0-1.0) mg/dL AST 19 (5-31) U/L ALT 14 (0-31) U/L Alkaline Phosphatase 63 (39-117) U/L Total Protein 7.3 (6.5-8.0) g/dL Albumin 4.5 (3.5-5.0) g/dL Beta HCG, Quant < 2 mIU/mL Influenza Type A (PCR) NEGATIVE (Negative) Influenza Type B (PCR) NEGATIVE (Negative) RSV RNA Qual (PCR) NEGATIVE (Negative) SARS-CoV-2 RNA (RT-PCR) NEGATIVE (Negative) Independent Interpretation I performed an independent interpretation of an: Plain X-Ray and CT Scan Interpretation: My interpretation is in agreement with the radiologist's impression of these imaging studies as written below. CLINICAL HISTORY: cough 1 view chest x-ray Comparison: CR - XR CHEST 1V - 03/31/25 17:06 EST Findings: Right upper lobe opacity suggesting a small infiltrate. No pleural effusion or pneumothorax. Normal size heart. Multiple left neck clips. No acute fracture. IMPRESSION: Right upper lobe opacity suggesting a small infiltrate. This document has been electronically signed by: Tiara Cornelius DO on 04/30/2025 14:43:41 Dictated By: Tiara Cornelius MD Signed By: Electronically signed by Tiara Cornelius MD 04/30/25 1445 CLINICAL HISTORY: SOB, hx of CA CT ANGIOGRAPHY CHEST WITH CONTRAST. 3D POSTPROCESSING. Comparison: None provided Findings: The heart is normal size. RV/LV ratio is normal. The thoracic aorta is normal caliber. No acute pulmonary embolus. The visualized thyroid and mediastinum are unremarkable. No consolidation, pleural effusion or pneumothorax. 3 mm and 4 mm nonobstructing calculi in the left kidney. The bones are intact. IMPRESSION: 1. No pulmonary emboli. This document has been electronically signed by: Tiara Cornelius DO on 04/30/2025 16:57:33 Dictated By: Tiara Cornelius MD Signed By: Electronically signed by Tiara Cornelius MD 04/30/25 3830 Radiology Impression Discussion of test interpretation with radiology: I have reviewed the radiologist's reading. Independent Historian Clinical information obtained from an independent historian. History obtained from or confirmed by: EMS (EMS provided additional history and confirmed the history provided by the patient) Critical Care Time Critical Care Time Critical Care Time: Yes Total Critical Care Time: 46 Attestation: I spent 46 minutes of Critical Care Time with this patient. This does not include time spent on separately reported billable procedures. Discharge Plan Discharge Clinical Impression: Pneumonia Qualifiers: Pneumonia type: due to unspecified organism Laterality: right Lung location: u pper lobe of lung Qualified Code(s): J18.9 - Pneumonia, unspecified organism Patient Disposition: Home, Self-Care Instructions: Community Acquired Pneumonia (DC) Additional Instructions: You were seen today in the ER for evaluation of flu-like symptoms. The x-ray of the chest shows concern for developing pneumonia. Your viral panel is negative for COVID, flu, RSV. You also had a CTA of the chest which showed no evidence of any pulmonary embolism (blood clot). Your heart rate was noted to be elevated, likely due to your fever. We gave you IV fluids which helped. Please engage adequate hydration at home. Please Rasmussen complete the course of the antibiotics as prescribed you: Cefpodoxime, and azithromycin. Start taking the antibiotics tomorrow morning. With any worsening complaints at any time, return back to the ED for additional assessment. Prescriptions: New cefpodoxime 200 mg tablet 200 mg PO Q12H 7 Days Qty: 14 0RF Rx Instructions: must administer with a meal/food azithromycin 250 mg tablet 250 mg PO DAILY 6 Days Qty: 6 0RF Rx Instructions: start on day 2 of therapy No Action sumatriptan succinate 25 mg tablet 25 mg PO QD-BID PRN (Reason: migraine) omeprazole 40 mg capsule,delayed release(DR/EC) 40 mg PO DAILY ferrous sulfate 325 mg (65 mg iron) tablet 325 mg PO DAILY naproxen 500 mg tablet 500 mg PO DAILY Zepbound 10 mg/0.5 mL pen injector 10 mg subcut QWEEK Referrals: [facility] Family Medicine [Provider Group, Family Practice] Stand Alone Forms: Work/School Release Print Language: Kazakh
[2025-04-30 13:58] LABS: MANUAL DIFF FLAG NO
[2025-04-30 13:59] LABS: Hematocrit 40.4 % (37.0-47.0); Hemoglobin 13.7 g/dl (12.0-16.0); Imm Gran Abs Auto 0.01 X10*3/uL (0.00-0.03); Imm Gran Pct Auto 0.2 % (0.0-0.4); Lymphocytes Absolute Auto 0.4 X10*3/uL (1.2-4.9); Mean Corpuscular HGB Conc 33.9 g/dl (31.0-35.0); Mean Corpuscular Hemoglobin 29.3 pg (27.0-33.0); Mean Corpuscular Volume 86.3 fL (80.0-98.0); NRBC Abs Auto 0.000 X10*3/uL (0.0-0.012); NRBC Pct Auto 0.0 /100WBC (0.0-0.2); Platelet Count 230 X10*3/uL (160-400); Red Blood Count 4.68 X10*6/uL (4.20-5.50); White Blood Count 5.1 X10*3/uL (4.8-10.8)
[2025-04-30 14:27] LABS: Alanine Aminotransferase 14 U/L (0-31); Albumin Level 4.5 g/dL (3.5-5.0); Alkaline Phosphatase 63 U/L (39-117); Anion Gap 12 (12-20); Aspartate Amino Transferase 19 U/L (5-31); Blood Urea Nitrogen 6 mg/dL (9-16); Calcium 9.4 mg/dL (8.4-10.2); Carbon Dioxide 25 mmol/L (22-29); Chloride 107 mmol/L (96-108); Creatinine Clr Calc Pharmacy 118.4; Estimated Glomerular Filt Rate > 60; Magnesium 2.1 mg/dL (1.6-2.6); Potassium 3.4 mmol/L (3.3-5.1); Sodium 141 mmol/L (135-145); Total Protein 7.3 g/dL (6.5-8.0)
[2025-04-30 14:58] LABS: Resp Syncy Virus RNA Qual PCR NEGATIVE (Negative); SARS COV2 PCR INHOUSE NEGATIVE (Negative)
[2025-04-30] MEDS: iohexoL 350 MG/ML 100 ML INFUS..BTL IV (15:09)
--- NOTE | 2025-04-30 17:36 | ECG_ITS ---
Test Reason : TACHYCARDIA Blood Pressure : */* mmHG Vent. Rate : 107 BPM Atrial Rate : 107 BPM P-R Int : 188 ms QRS Dur : 92 ms QT Int : 336 ms P-R-T Axes : 60 4 43 degrees QTcB Int : 448 ms Sinus tachycardia Cannot rule out Anterior infarct , age undetermined Abnormal ECG When compared with ECG of 31-Mar-2025 16:16, No significant change was found Referred By: Anna Olmedo Electronically Signed By: Kal Landeros
--- NOTE | 2025-04-30 19:11 | PC.NURSE ---
20 g IV in left AC
== END 2025-04-30 20:15 | disposition home or self-care (01) ==
PROVIDERS: Physician Assistant Medical; Emergency Provider Emergency Medicine
DX: J18.9 Pneumonia, unspecified organism (principal); R05.9 Cough, unspecified; R50.9 Fever, unspecified; R11.0 Nausea; R06.02 Shortness of breath; R00.0 Tachycardia, unspecified; J45.909 Unspecified asthma, uncomplicated; Z85.72 Personal history of non-Hodgkin lymphomas
CPT/HCPCS: 36415; 71045; 71275; 80053; 83605; 83735; 84702; 85025; 87040; 87637; 93005; 96365; 96367; 96375; 99285; J0131; J0696; J1885; J2919; Q9967

== ENCOUNTER → 2025-04-30 13:33 | Outpatient (BNV) | payer OTHER, SELFPAY | PROVIDERS: Visit Provider Radiology Diagnostic Radiology | DX: R06.02 Shortness of breath (principal); R91.8 Other nonspecific abnormal finding of lung field | CPT/HCPCS: 71045; 71275 ==

== ENCOUNTER → 2025-04-30 17:36 | Outpatient (BNV) | payer OTHER, SELFPAY | PROVIDERS: Emergency Provider Emergency Medicine; Visit Provider Internal Medicine Cardiovascular Disease | DX: R00.0 Tachycardia, unspecified (principal) | CPT/HCPCS: 93010 ==